=== PATIENT | male | born 1950 | race Caucasian/White ===

== ENCOUNTER 2017-04-18 08:42 | Observation (INO) | payer MEDICARE ==
[2017-04-18] MEDS ORDERED: Ondansetron INJ* 2 MG/ML VIAL IV ONE (09:17)
[2017-04-18] MEDS ORDERED: NS 0.9% 1000 ML* 3,000 ML IV ONE (09:17)
--- NOTE | 2017-04-18 09:17 | ED ---
Abdominal Pain/Male - History of Current Complaint Chief Complaint: EDDiabeticProb Stated Complaint: VOMITING/WEAK Time Seen by Provider: 04/18/17 09:06 Pain Intensity: 5 - Allergies/Home Medications Allergies/Adverse Reactions: Allergies Allergy/AdvReac Type Severity Reaction Status Date / Time SSRI Allergy Anxiety Uncoded 04/18/17 09:01 PMH/Surg Hx/FS Hx/Imm Hx Endocrine/Hematology History: Reports: Hx Diabetes - TYPE II- INSULIN OR ORAL MEDICATION FOR Denies: Hx Anemia Cardiovascular History: Reports: Hx Hypertension - ON MEDICATION FOR Respiratory History: Reports: Hx Sleep Apnea GI History: Reports: Other GI Disorders - HISTORY OF SLIGHTLY ENLARGED LIVER- PRIOR TO LOOSING WEIGHT Denies: Hx Jaundice Sensory History: Reports: Hx Cataracts - LEFT, Hx Contacts or Glasses - READING GLASSES Denies: Hx Hearing Aid Opthamlomology History: Reports: Hx Cataracts - LEFT, Hx Contacts or Glasses - READING GLASSES - Surgical History Surgery Procedure, Year, and Place: LEFT EYE RETINA REPAIR- [place]. 10 YEARS AGO-PLASTIC SURGERY-[place]. 20 YEARS AGO-PLASTIC SURGERY[place] Hx Anesthesia Reactions: No Infectious Disease History: No Infectious Disease History: Denies: Traveled Outside the [place] in Last 30 Days - Family History Known Family History: Negative: Cardiac Disease, Hypertension, Diabetes - Social History Alcohol Use: Daily Alcohol Amount: "quite a bit" vodka Substance Use Type: Reports: Marijuana Substance Use Comment - Amount & Last Used: ocassionally Smoking Status (MU): Never Smoked Tobacco Physical Exam Vital Signs On Initial Exam: Initial Vitals Temp Pulse Resp BP Pulse Ox 98.0 F 109 20 165/79 97 04/18/17 08:44 04/18/17 08:44 04/18/17 08:44 04/18/17 08:44 04/18/17 08:44 - [place] Coma Scale Coma Scale Total: 15 Diagnostics - Vital Signs Vital Signs Temp Pulse Resp BP Pulse Ox 04/18/17 09:01 104 97 04/18/17 08:58 185/70 04/18/17 08:54 98.6 F 105 18 185/70 98 04/18/17 08:44 98.0 F 109 20 165/79 97 - Laboratory Lab Statement: Any lab studies that have been ordered have been reviewed, and results considered in the medical decision making process.
[2017-04-18 09:46] LABS: Hematocrit 49 % (42-52); Hemoglobin 15.8 g/dl (14.0-18.0); Mean Corpuscular HGB Conc 32 g/dl (31-36); Mean Corpuscular Hemoglobin 32 pg (27-31); Mean Corpuscular Volume 100 fL (80-94); Mean Platelet Volume 9 um3 (7.4-10.4); Red Blood Count 4.89 10^6/ul (4.0-5.4); Red Cell Distribution Width 13 % (10.5-15); White Blood Count 19.1 10^3/ul (3.5-10.8)
[2017-04-18] MEDS ORDERED: Ibuprofen TAB* 400 MG PO ONE (09:52)
--- NOTE | 2017-04-18 09:54 | ED ---
HPI Diabetic - HPI Summary HPI Summary: 67 male presents to ER with complaints of of vomiting that began last night around 8pm 04/17/17. Patient states he since has been vomiting every half hour, unable to keep anything down. Patient is a Type II diabetic in which he takes Lantus 50mg in the morning however he states he may have forgot to take it yesterday morning. States last time he did this he did go into DKA. Patient also is heavy alcohol user, drinking 2-3 glass of vodka a day. Last use was last night at 6pm. States he used to have and be treated for HTN and high cholesterol however due to changing his diet and lowering A1C fro 10.5 to 6.4 he no longer is taking any medications other than supplements and Lantus. Admits to feeling weak/lethargic since vomiting occurred. Denies altered mental status and any pain. Denies chest pain, difficulty breathing, dizziness, abdominal pain hematemesis, fever/chills and complaints. States he has a sore throat from vomiting. - History Of Current Complaint Chief Complaint: EDDiabeticProb Time Seen by Provider: 04/18/17 09:06 Hx Obtained From: Patient Onset/Duration: Sudden Onset, Lasting Hours, Still Present, Worse Since Timing: Constant Severity Initially: Moderate Severity Currently: Severe Character: Alert Aggravating: Alcohol, Non-compliant - missed lantus dose 04/17/17 Alleviating: Nothing Associated Signs & Symptoms: Polydipsia, Vomiting Related History: Controlled - when takes medication, DM II, Hx of DKA, Insulin Requiring - Risk Factors Cardiac Risk Factors: Hypertension - no longer medicated for, Elevated Lipids - no longer medicated for CVA Risk Factor: Alcohol Abuse Serious Bact. Infect. Risk Factors (Meningitis/Sepsis/UTI): Negative - Allergies/Home Medications Allergies/Adverse Reactions: Allergies Allergy/AdvReac Type Severity Reaction Status Date / Time SSRI Allergy Anxiety Uncoded 04/18/17 09:01 PMH/Surg Hx/FS Hx/Imm Hx Endocrine/Hematology History: Reports: Hx Diabetes - TYPE II- INSULIN OR ORAL MEDICATION FOR Denies: Hx Anemia Cardiovascular History: Reports: Hx Hypercholesterolemia - no longer taking medication for , Hx Hypertension - no longer taking medication for Respiratory History: Reports: Hx Sleep Apnea GI History: Reports: Other GI Disorders - HISTORY OF SLIGHTLY ENLARGED LIVER- PRIOR TO LOOSING WEIGHT Denies: Hx Jaundice Sensory History: Reports: Hx Cataracts - LEFT, Hx Contacts or Glasses - READING GLASSES Denies: Hx Hearing Aid Opthamlomology History: Reports: Hx Cataracts - LEFT, Hx Contacts or Glasses - READING GLASSES - Surgical History Surgery Procedure, Year, and Place: LEFT EYE RETINA REPAIR- [place]. 10 YEARS AGO-PLASTIC SURGERY-[place]. 20 YEARS AGO-[place] SURGERY[place] Hx Anesthesia Reactions: No - Immunization History Immunizations Up to Date: Yes Infectious Disease History: No Infectious Disease History: Denies: Traveled Outside the [place] in Last 30 Days - Family History Known Family History: Negative: Cardiac Disease, Hypertension, Diabetes - Social History Alcohol Use: Daily Alcohol Amount: "quite a bit" vodka 2-3 glasses Substance Use Type: Reports: Marijuana Substance Use Comment - Amount & Last Used: ocassionally Smoking Status (MU): Never Smoked Tobacco Review of Systems Constitutional: Negative Eyes: Negative ENT: Negative Cardiovascular: Negative Respiratory: Negative Positive: Vomiting, Nausea Musculoskeletal: Negative Skin: Negative Neurological: Negative All Other Systems Reviewed And Are Negative: Yes Physical Exam Triage Information Reviewed: Yes Vital Signs On Initial Exam: Initial Vitals Temp Pulse Resp BP Pulse Ox 98.0 F 109 20 165/79 97 04/18/17 08:44 04/18/17 08:44 04/18/17 08:44 04/18/17 08:44 04/18/17 08:44 tachycardia noted Vital Signs Reviewed: Yes Appearance: Positive: No Pain Distress, Well-Nourished, Ill-Appearing - lethargic, weak Skin: Positive: Warm, Skin Color Reflects Adequate Perfusion, Dry, Pale. Negative: Cold, Cyanosis @, Diaphoretic Head/Face: Positive: Normal Head/Face Inspection Eyes: Positive: Normal, Conjunctiva Clear ENT: Positive: Normal ENT inspection, Hearing grossly normal, Pharyngeal erythema, TMs normal Neck: Positive: Supple, Nontender, No Lymphadenopathy Respiratory/Lung Sounds: Positive: Clear to Auscultation, Breath Sounds Present. Negative: Rales, Rhonchi, Wheezes Cardiovascular: Positive: Normal, RRR, Pulses are Symmetrical in both Upper and Lower Extremities, Tachycardia. Negative: Murmur, Rub, Leg Edema Left, Leg Edema Right Abdomen Description: Positive: Nontender, No Organomegaly, Soft. Negative: Distended, Guarding, Peritoneal Signs, Pulsatile Mass Bowel Sounds: Positive: Present Musculoskeletal: Positive: Normal, Strength/ROM Intact Neurological: Positive: Normal, Sensory/Motor Intact, Alert, Oriented to Person Place, Time Psychiatric: Positive: Affect/Mood Appropriate AVPU Assessment: Alert - [place] Coma Scale Best Eye Response: 4 - Spontaneous Best Motor Response: 6 - Obeys Commands Best Verbal Response: 5 - Oriented Coma Scale Total: 15 Diagnostics - Vital Signs Vital Signs Temp Pulse Resp BP Pulse Ox 04/18/17 09:30 102 23 177/65 97 04/18/17 09:01 104 97 04/18/17 09:00 187/72 04/18/17 08:58 185/70 04/18/17 08:54 98.6 F 105 18 185/70 98 04/18/17 08:44 98.0 F 109 20 165/79 97 - Laboratory Lab Results: Lab Results 04/18/17 Range/Units 08:55 POC Glucose (mg/dL) > 444 H* (74-106) mg/dL Result Diagrams: 04/18/17 09:20 04/18/17 14:05 Lab Statement: Any lab studies that have been ordered have been reviewed, and results considered in the medical decision making process. Diabetic Course/Dx - Course Course Of Treatment: Lab work, UA and ABG obtained. Due to finger glustick upon arrival unable to detect, was started on 3 L fluid bolus STAT. ABG and lab work , anion gap, glucose, lactic, lipase etc were elevated and abnormal. appears to be suffering from DKA. Discussed with Dr Lentz. Started on insulin drip and continued fluids. Given zofran for nausea. Consulted with ICU Dr De Jesus at 10: 25am. Will admit. Assessment/Plan: ICU admission for DKA - Diagnoses Differential Dx: Diabetic Ketoacidosis, Hyperglycemia, Hyperosmolar State, Sepsis, Other Provider Diagnoses: DKA (diabetic ketoacidoses) - Physician Notifications Discussed Care Of Patient With: Dr De Jesus Time Discussed With Above Provider: 10:25 Instructed by Provider To: Admit As Inpatient - ICU Discharge - Discharge Plan Condition: Stable Disposition: ADMITTED TO [facility]
[2017-04-18 10:01] LABS: Albumin 4.1 g/dL (3.2-5.2); BUN/Creatinine Ratio 16.8 (8-20); C Reactive Protein 4.42 mg/L (< 5.00); Calcium 9.6 mg/dL (8.6-10.3); EGFR African American 53.2 (>60); EGFR Non-African American 41.4 (>60); Globulin 3.2 g/dL (2-4); Total Bilirubin 0.8 mg/dL (0.2-1.0); Total Protein 7.3 g/dL (6.4-8.9)
[2017-04-18 10:02] LABS: Urine Bilirubin Negative (Negative); Urine Glucose 3+(>=500 mg/dL) (Negative); Urine Nitrite Negative (Negative)
[2017-04-18 10:09] LABS: Potassium 5.3 mmol/L (3.5-5.0)
[2017-04-18 10:41] LABS: Add Diff/Slide Review? Slide Review Added; Comments Flag Yes
[2017-04-18] MEDS ORDERED: LORazepam INJ* 2 MG/ML 1 ML VIAL IV PUSH PRN (11:31)
[2017-04-18] MEDS ORDERED: Ondansetron INJ* 2 MG/ML VIAL IV PRN (11:32)
--- NOTE | 2017-04-18 11:37 | HP ---
H&P (Free Text) History and Physical: CRITICAL CARE MEDICINE DATE: 04/18/17 TIME: 1100 PRIMARY CARE PROVIDER: REFERRING PROVIDER: Jayshree. REASON/CHIEF COMPLAINT: dka HISTORY OF PRESENT ILLNESS: 67 yo M with h/o etoh abuse, iddm usually on lantus 50 units daily followed by Dr. Gonsalez who beleives he missed his dose yesterday. Had 3 glasses of vodka yesterday and had episodes of vomiting overnight that were unrelenting about every 30min. Did take his lantus this am and presented to ED. Found to be in dka with AG 37. IVF, insulin gtt and admit to icu REVIEW OF SYSTEMS: As per HPI. denies cp, f, c. PAST MEDICAL HISTORY: As per HPI. MEDICATIONS: Reviewed. lantus 50units daily, supplements. states he has "pills" if needing to stop etoh ALLERGIES: SSRI SOCIAL HISTORY: Reviewed. 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 +etoh daily FAMILY HISTORY: Noncontributory at present. PHYSICAL EXAM: Vital Signs: Reviewed. Neurologic: awake, communicating, nonfocal, mild encephalopathy. HEENT: anicteric, mm dry Cardiovascular: S1 S2 Respiratory: clear, tachypnic Abdomen: soft, nt Extremities: warm Access: piv LABS: Reviewed. IMAGING: Reviewed. MEDICATIONS: Reviewed. ASSESSMENT/PLAN: 67 M with dka, lopez sec to this, and etoh abuse He looks a bit better then his numbers, but needs volume and insulin gtt and time on dextrose as well. Check labs at 2p and look to add dextrose at that time. can have clears and advance as tolerating. Seeming non-adherence and etoh main triggers. Need watch for etoh withdrawal. prn ativan. f/u lytes and renal recovery from pre-renal. No clinical pancreatitis. no infection. wbc reactive. Etoh cessation Can have Dr. Gonsalez see him tomorrow. Supportive and preventative care as ordered. SUP: po VTE prophylaxis: Lovenox Disposition: ICU Code Status: Full Critical Care Time: 45min Alonzo De Jesus DO
[2017-04-18] MEDS: NS 0.9% 1000 ML* 1,000 ML IV SCH ×3 (11:49→13:51)
[2017-04-18] MEDS: Insulin GLARGINE(*) 1 UNITS UNIT SUBCUT SCH (11:56)
[2017-04-18] MEDS ORDERED: hydrALAZINE IV* 20 MG/ML VIAL IV SLOW PU PRN (12:17)
[2017-04-18] MEDS ORDERED: Pantoprazole IV* 40 MG IV ONE (12:25)
[2017-04-18] MEDS: Calcium Carbonate CHEW TAB* 500 MG (TUMS) PO PRN (12:39)
[2017-04-18] MEDS: Acetaminophen TAB* 325 MG PO PRN ×2 (13:08→20:48)
[2017-04-18] MEDS ORDERED: Enoxaparin(*) 40 MG/0.4 ML SYR SUBCUT SCH (14:00)
[2017-04-18 14:35] LABS: Calcium 7.9 mg/dL (8.6-10.3); EGFR African American 77.2 (>60); Potassium 4.2 mmol/L (3.5-5.0)
[2017-04-18] MEDS: D5W 1/2 NS 40 Meq KCL 1000 ML* 1,000 ML IV SCH ×2 (14:57→21:17)
[2017-04-18 18:37] LABS: BUN/Creatinine Ratio 18.9 (8-20); Calcium 8.4 mg/dL (8.6-10.3); EGFR African American 89.9 (>60); EGFR Non-African American 69.9 (>60); Potassium 4.5 mmol/L (3.5-5.0)
[2017-04-18] MEDS: Benzocaine/Menthol LOZ* 1 LOZENGE PO PRN (19:47)
[2017-04-19] MEDS: Acetaminophen TAB* 325 MG PO PRN ×2 (00:19→07:48)
[2017-04-19] MEDS: Calcium Carbonate CHEW TAB* 500 MG (TUMS) PO PRN (00:20)
[2017-04-19] MEDS: Benzocaine/Menthol LOZ* 1 LOZENGE PO PRN ×2 (00:20→07:49)
[2017-04-19 06:32] LABS: Hematocrit 43 % (42-52); Hemoglobin 14.2 g/dl (14.0-18.0); Mean Corpuscular HGB Conc 33 g/dl (31-36); Mean Corpuscular Hemoglobin 32 pg (27-31); Mean Corpuscular Volume 98 fL (80-94); Mean Platelet Volume 8 um3 (7.4-10.4); Red Blood Count 4.39 10^6/ul (4.0-5.4); Red Cell Distribution Width 13 % (10.5-15); White Blood Count 12.1 10^3/ul (3.5-10.8)
[2017-04-19 06:42] LABS: BUN/Creatinine Ratio 17.7 (8-20); Calcium 8.3 mg/dL (8.6-10.3); EGFR African American 126.2 (>60); EGFR Non-African American 98.1 (>60); Phosphorus 2.5 mg/dL (2.5-5.0); Potassium 4.1 mmol/L (3.5-5.0)
--- NOTE | 2017-04-19 07:30 | PN ---
Subjective - Subjective Reason for Note: Discharge Note History: Discharge Summary I have reviewed Arben Kearney's presentation with the patient and also with Dr. Gates's admitting history and physical. He was on a trip to [place] and has been using the same vial of insulin all along. It may have spoiled. He missed a dose of lantus, but no more. He is an alcoholic and has been drinking the usual amount of alcohol. Otherwise, he has had no intercurrent illnesses - no URI, UTI. He developed nausea and vomiting leading to his presentation. He has received optimal management overnight on the ICU and is now well hydrated and his glucose is back to a desirable range. He feels improved and ready to go home. Active Problems: Active Problems DKA, type 2 (Acute) E13.10 Heartburn (Acute) R12 Essential (primary) hypertension (Chronic) I10 Hyperlipidemia (Chronic) E78.5 Insulin long-term use (Chronic) Z79.4 Personal history of alcoholism (Chronic) F10.21 Type 2 diabetes mellitus (Chronic) Current Medications: Current Medications Acetaminophen (Tylenol Tab*) 650 mg PO Q4H PRN PRN Reason: FEVER/PAIN Last Admin: 04/19/17 00:19 Dose: 650 mg Calcium Carbonate (Tums*) 500 mg PO Q4H PRN PRN Reason: DYSPEPSIA Last Admin: 04/19/17 00:20 Dose: 500 mg Enoxaparin Sodium (Lovenox(*)) 40 mg SUBCUT Q24H DAINA Last Admin: 04/18/17 13:57 Dose: 40 mg Hydralazine HCl (Apresoline Iv*) 10 mg IV SLOW PU Q6H PRN PRN Reason: BLOOD PRESSURE Last Admin: 04/18/17 12:39 Dose: 10 mg Potassium Chloride/Dextrose (D5w 1/2 Ns 40 Meq Kcl 1000 Ml*) 1,000 mls @ 75 mls /hr IV PER RATE DAINA Last Admin: 04/18/17 21:17 Dose: 150 mls/hr Insulin Glargine (Lantus(*)) 50 units SUBCUT Q24H DAINA Last Admin: 04/18/17 11:56 Dose: 50 units Lorazepam (Ativan Inj*) 2 mg IV PUSH Q4H PRN PRN Reason: AGITATION Ondansetron HCl (Zofran Inj*) 4 mg IV Q6H PRN PRN Reason: NAUSEA Throat Lozenges (Chloraseptic Neil*) 1 neil PO Q4H PRN PRN Reason: SORE THROAT Last Admin: 04/19/17 00:20 Dose: 1 neil - Review of Systems Pulmonary: Positive: Cough Negative: Sputum, Hemoptysis, Respiratory Distress Cardiology: Negative: Chest Pain, Shortness of Breath, Palpitations, Swelling of Ankles Gastroenterology: Positive: Anorexia - he is hungry, Difficulty Swallowing - some soreness of throat from retching Negative: Nausea - this has stopped, Vomiting, Change in Bowel Habits Genital - Urinary: Negative: Dysuria Home Medications: Home Medications Medication Instructions Recorded Confirmed Type Aspirin [Aspirin Low Dose] 81 mg PO QAM 12/26/15 04/18/17 History Calcium 800 mg PO QAM 12/26/15 04/18/17 History Cholecalciferol [Vitamin D3] 1,000 unit PO DAILY 12/26/15 04/18/17 History [place] 3 Fatty Acids-[place] 6 FA 1 cap PO DAILY 12/26/15 04/18/17 History [Super [place]-3] Senior Multi Vitamin 1 tab PO DAILY 12/26/15 04/18/17 History Ultimate Probiotivs 1 tab PO DAILY 12/26/15 04/18/17 History Insulin GLARGINE(*) [Lantus(*)] 50 units SUBCUT Q24H unit 04/19/17 Rx Allergies: Allergies Allergy/AdvReac Type Severity Reaction Status Date / Time SSRI Allergy Anxiety Uncoded 04/18/17 09:01 Objective - Vital Signs Vital Signs: Vital Signs 04/18/17 04/18/17 04/18/17 11:00 11:14 11:30 Temperature 98.6 F 99.5 F Pulse Rate 102 100 102 Respiratory 23 18 18 Rate Blood Pressure 181/84 181/84 176/77 (mmHg) O2 Sat by Pulse 99 99 Oximetry 04/18/17 04/18/17 04/18/17 11:35 11:47 11:48 Temperature Pulse Rate 102 98 Respiratory 21 20 Rate Blood Pressure 183/92 (mmHg) O2 Sat by Pulse 99 98 Oximetry 04/18/17 04/18/17 04/18/17 12:00 12:15 12:26 Temperature 98.6 F Pulse Rate 98 97 Respiratory 22 20 22 Rate Blood Pressure 186/69 193/67 (mmHg) O2 Sat by Pulse 98 97 Oximetry 04/18/17 04/18/17 04/18/17 12:30 12:45 13:00 Temperature Pulse Rate 97 96 97 Respiratory 22 21 23 Rate Blood Pressure 189/74 177/64 154/57 (mmHg) O2 Sat by Pulse 98 98 99 Oximetry 04/18/17 04/18/17 04/18/17 13:30 14:00 15:00 Temperature Pulse Rate 95 93 88 Respiratory 16 15 16 Rate Blood Pressure 150/52 159/56 141/54 (mmHg) O2 Sat by Pulse 99 99 99 Oximetry 04/18/17 04/18/17 04/18/17 16:00 17:00 18:00 Temperature 98.6 F Pulse Rate 88 88 92 Respiratory 19 23 26 Rate Blood Pressure 143/58 134/62 (mmHg) O2 Sat by Pulse 98 96 98 Oximetry 04/18/17 04/18/17 04/18/17 19:00 19:19 20:00 Temperature 100.1 F Pulse Rate Respiratory 18 21 18 Rate Blood Pressure 143/56 148/64 (mmHg) O2 Sat by Pulse 95 98 99 Oximetry 04/18/17 04/18/17 04/18/17 21:00 22:00 23:00 Temperature Pulse Rate 80 Respiratory 17 15 16 Rate Blood Pressure 137/58 130/63 145/68 (mmHg) O2 Sat by Pulse 98 94 96 Oximetry 04/18/17 04/18/17 04/18/17 23:22 23:27 23:43 Temperature 100.1 F Pulse Rate Respiratory 23 18 Rate Blood Pressure (mmHg) O2 Sat by Pulse 96 Oximetry 04/19/17 04/19/17 04/19/17 00:00 00:01 01:00 Temperature Pulse Rate Respiratory 23 22 20 Rate Blood Pressure 143/63 139/62 (mmHg) O2 Sat by Pulse 96 96 94 Oximetry 04/19/17 04/19/17 04/19/17 02:00 03:00 04:00 Temperature 100.4 F Pulse Rate 80 81 80 Respiratory 18 11 25 Rate Blood Pressure 144/63 156/67 151/64 (mmHg) O2 Sat by Pulse 95 97 98 Oximetry 04/19/17 04/19/17 04/19/17 05:00 06:00 07:00 Temperature Pulse Rate Respiratory 24 22 19 Rate Blood Pressure 153/68 158/68 152/68 (mmHg) O2 Sat by Pulse 98 100 97 Oximetry - Intake and Output Intake and Output: Intake & Output 04/16/17 04/17/17 04/18/17 04/19/17 11:59 11:59 11:59 11:59 Intake Total 5567.7 Output Total 300 1999 Balance -300 3567.7 Weight 226 lb 3.108 oz Intake: IV Fluids 4717 D5W 1/4 NS 40 meq KCL 2717 NS 1999 Medicated IV 70.7 INSULIN 70.7 Oral 780 Output: Urine 300 1999 Other: Estimated Void Medium ADLs: Meal Record Start: 04/18/17 11: 05 Freq: 09,13,18 Status: Active Created 04/18/17 11:05 System (Rec: 04/18/17 11:05 System [id number]) Document 04/18/17 13:30 [id number] (Rec: 04/18/17 13:42 [id number] ICU-M21) Document 04/18/17 18:00 [id number] (Rec: 04/18/17 18:07 [id number] ICU-C25) Intake and Output Start: 04/18/17 08: 47 Freq: Status: Active Created 04/18/17 08:47 System (Rec: 04/18/17 08:47 System ED-C24) Document 04/18/17 11:06 [id number] (Rec: 04/18/17 11:06 [id number] EDL-C04) Intake and Output Start: 04/18/17 11: 05 Freq: 06,14,22 Status: Active Created 04/18/17 11:05 System (Rec: 04/18/17 11:05 System ICU-C15) Document 04/18/17 14:00 [id number] (Rec: 04/18/17 15:10 [id number] ICU-C15) Document 04/18/17 17:44 [id number] (Rec: 04/18/17 17:44 [id number] ICU-C25) Document 04/18/17 21:55 [id number] (Rec: 04/18/17 21:55 [id number] ICU-C16) Document 04/18/17 23:27 [id number] (Rec: 04/18/17 23:27 [id number] ICU-C14) Document 04/19/17 04:12 [id number] (Rec: 04/19/17 04:13 [id number] ICU-C14) Document 04/19/17 06:30 [id number] (Rec: 04/19/17 06:30 [id number] ICU-C16) - Physical Exam General Physical Exam Comment: Alert, oriented and fully conversational. Well hydrated, warm and normally perfused. Hemodynamically stable General: No Cyanosis, No Anemia, No Jaundice, No Clubbing Skin: Normal: Rash Lungs and Chest: Yes: Chest Expansion Full, Chest Expansion Symetrica, Percussion Note Resonant, Vessicular Breath Sounds. No: Crackles, Wheezes Heart Rate and Rhythm: Regular JVP: Not Elevated Additional Cardiovascular: Yes: Normal Heart Sounds. No: Heart Murmur, Pedal Edema Abdominal Exam: Yes: Soft, Bowel Sounds Present. No: Distention, Abdominal Mass , Hepatomegaly, Abdominal Tenderness - Extremities Cranial Nerves II-XII Intact: Yes Limbs: Normal Power, Normal Tone - Neuro Orientation: A/O x3 Psychiatric: Normal Speech: Normal Results - Results Lab Results: Laboratory Results - last 24 hr 04/18/17 04/18/17 04/18/17 14:05 14:09 15:12 WBC RBC Hgb Hct MCV MCH MCHC RDW Plt Count MPV Neut % (Auto) Lymph % (Auto) [place] % (Auto) Eos % (Auto) Baso % (Auto) Absolute Neuts (auto) Absolute Lymphs (auto) Absolute Monos (auto) Absolute Eos (auto) Absolute Basos (auto) Absolute Nucleated RBC Nucleated RBC % Sodium 136 Potassium 4.2 Chloride 102 Carbon Dioxide 18 L Anion Gap 16 H BUN 23 Creatinine 1.21 H Est GFR ( Amer) 77.2 Est GFR (Non-Af Amer) 60.0 BUN/Creatinine Ratio 19.0 Glucose 255 H POC Glucose (mg/dL) 265 H 245 H Calcium 7.9 L Phosphorus Magnesium 04/18/17 04/18/17 04/18/17 16:14 17:24 18:04 WBC RBC Hgb Hct MCV MCH MCHC RDW Plt Count MPV Neut % (Auto) Lymph % (Auto) [place] % (Auto) Eos % (Auto) Baso % (Auto) Absolute Neuts (auto) Absolute Lymphs (auto) Absolute Monos (auto) Absolute Eos (auto) Absolute Basos (auto) Absolute Nucleated RBC Nucleated RBC % Sodium 138 Potassium 4.5 Chloride 105 Carbon Dioxide 26 Anion Gap 7 BUN 20 Creatinine 1.06 Est GFR ( Amer) 89.9 Est GFR (Non-Af Amer) 69.9 BUN/Creatinine Ratio 18.9 Glucose 224 H POC Glucose (mg/dL) 240 H 221 H Calcium 8.4 L Phosphorus Magnesium 04/18/17 04/18/17 04/18/17 18:13 19:37 22:02 WBC RBC Hgb Hct MCV MCH MCHC RDW Plt Count MPV Neut % (Auto) Lymph % (Auto) [place] % (Auto) Eos % (Auto) Baso % (Auto) Absolute Neuts (auto) Absolute Lymphs (auto) Absolute Monos (auto) Absolute Eos (auto) Absolute Basos (auto) Absolute Nucleated RBC Nucleated RBC % Sodium Potassium Chloride Carbon Dioxide Anion Gap BUN Creatinine Est GFR ( Amer) Est GFR (Non-Af Amer) BUN/Creatinine Ratio Glucose POC Glucose (mg/dL) 251 H 226 H 180 H Calcium Phosphorus Magnesium 04/19/17 04/19/17 04/19/17 00:23 02:18 04:36 WBC RBC Hgb Hct MCV MCH MCHC RDW Plt Count MPV Neut % (Auto) Lymph % (Auto) [place] % (Auto) Eos % (Auto) Baso % (Auto) Absolute Neuts (auto) Absolute Lymphs (auto) Absolute Monos (auto) Absolute Eos (auto) Absolute Basos (auto) Absolute Nucleated RBC Nucleated RBC % Sodium Potassium Chloride Carbon Dioxide Anion Gap BUN Creatinine Est GFR ( Amer) Est GFR (Non-Af Amer) BUN/Creatinine Ratio Glucose POC Glucose (mg/dL) 141 H 151 H 128 H Calcium Phosphorus Magnesium 04/19/17 04/19/17 06:00 06:00 WBC 12.1 H RBC 4.39 Hgb 14.2 Hct 43 MCV 98 H MCH 32 H MCHC 33 RDW 13 Plt Count 158 MPV 8 Neut % (Auto) 85.0 H Lymph % (Auto) 7.6 L [place] % (Auto) 7.1 Eos % (Auto) 0.1 Baso % (Auto) 0.2 Absolute Neuts (auto) 10.3 H Absolute Lymphs (auto) 0.9 L Absolute Monos (auto) 0.9 H Absolute Eos (auto) 0 Absolute Basos (auto) 0 Absolute Nucleated RBC 0 Nucleated RBC % 0 Sodium 139 Potassium 4.1 Chloride 108 Carbon Dioxide 25 Anion Gap 6 BUN 14 Creatinine 0.79 Est GFR ( Amer) 126.2 Est GFR (Non-Af Amer) 98.1 BUN/Creatinine Ratio 17.7 Glucose 128 H POC Glucose (mg/dL) Calcium 8.3 L Phosphorus 2.5 Magnesium 2.0 Assessment - Problem List Assessment: Patient Problems DKA, type 2 (Acute) Heartburn (Acute) Essential (primary) hypertension (Chronic) Hyperlipidemia (Chronic) Insulin long-term use (Chronic) Personal history of alcoholism (Chronic) Type 2 diabetes mellitus (Chronic) Plan: DKA, type 2 (Acute) He has recovered both symptomatically and also metabolically as judged by his labs this morning. He no longer is acidotic and has completely normal chemistry. I think he stable and ready for discharge Heartburn (Acute) This is likely from recurrent vomiting Essential (primary) hypertension (Chronic) He is chronically non-compliant and has contracted with me to work on his risk factors again Hyperlipidemia (Chronic) He has not been taking any medication for this Insulin long-term use (Chronic) His Lantus insulin was spoiled. He will use a new vial that has been stored in his refrigerator. I will work with him as an outpatient on improved glycemic control Personal history of alcoholism (Chronic) This is a major cause of his non- compliance. He denies depression at present and he is in a relationship with a partner who does not drink alcohol. He has lorazepam at home and has planned to stop alcohol. He states he doesn't go into acute withdrawal when he doesn't drink Type 2 diabetes mellitus (Chronic) He has amazingly few complications of diabetes given his poor control. I will work with him as an outpatient to improve his glycemic control. I had a discussion with him about his self-neglect. It is largely a result of his alcoholism. However, this is a chronic and persistent problem. He doesn't make appointments to my office. He always agrees to therapeutic plans and can carry them out for a few weeks, but then he falls off. He understands that this is a halfway health hazard. He is resolved to work with me to get his comorbidities well managed. He needs to eat breakfast, if he keeps this down he can go home.
[2017-04-19] MEDS: Insulin GLARGINE(*) 1 UNITS UNIT SUBCUT SCH (09:08)
[2017-04-19 09:15] VITALS: BP 162/71
== END 2017-04-19 09:48 | disposition home or self-care (01) ==
LOC: ED 08:42 → INTOOBSV 10:34 → ICU 10:34
PROVIDERS: ADMIT Internal Medicine Critical Care Medicine; ATTEND Internal Medicine Critical Care Medicine
DX: E13.10 Other specified diabetes mellitus with ketoacidosis without coma (principal); Z79.4 Long term (current) use of insulin; I10 Essential (primary) hypertension; E78.00 Pure hypercholesterolemia, unspecified; F10.20 Alcohol dependence, uncomplicated
CPT/HCPCS: 36415; 80048; 80053; 81003; 83036; 83605; 83690; 83735; 84100; 85025; 86140; 87641; 94660; 96361; 96372; 96374; 96375; 99285; A9270-GY; G0378; J0360; J1650; J2405

== ENCOUNTER 2018-12-29 09:15 | Inpatient (IN) | payer MEDICARE ==
--- NOTE | 2018-12-29 09:34 | ED ---
HPI Diabetic - HPI Summary HPI Summary: This pt is a 68 y/o male [facility]o nausea and vomiting since 22: 30 last night. Pt reports vomiting has been more frequent in the last 3 hours. Denies abd pain, diarrhea, constipation, swelling in LE. He is a type 2 DM and the last time he had these symptoms he was in DKA. Pt has been compliant with medications but he did not take insulin this morning. He reports getting injections in bilateral eyes, steroids in left eye and fluids in right eye. Pt notes drinking alcohol on a daily basis and did drink yesterday. - History Of Current Complaint Chief Complaint: EDNauseaVomitDiarrh Time Seen by Provider: 12/29/18 09:17 Hx Obtained From: Patient Onset/Duration: Lasting Hours, Still Present Timing: Hours Severity Currently: Moderate Aggravating: Nothing Alleviating: Nothing Associated Signs & Symptoms: Nausea, Vomiting Related History: Compliant, DM II, Hx of DKA - Allergies/Home Medications Allergies/Adverse Reactions: Allergies Allergy/AdvReac Type Severity Reaction Status Date / Time SSRI Allergy Anxiety Uncoded 12/29/18 09:50 Home Medications: Home Medications Amlodipine 10 mg PO DAILY 12/29/18 [History Confirmed 12/29/18] Invokana (NF) 100 mg PO DAILY 12/29/18 [History Confirmed 12/29/18] PMH/Surg Hx/FS Hx/Imm Hx Endocrine/Hematology History: Reports: Hx Diabetes - TYPE II- INSULIN OR ORAL MEDICATION FOR Denies: Hx Anticoagulant Therapy, Hx Blood Disorders, Hx Blood Transfusions, Hx Bone Marrow Disease, Hx Systemic Lupus Erythematosus, Hx Sickle Cell Disease , Hx Thyroid Disease, Hx Anemia, Hx Unexplained Bleeding, Other Endocrine/ Hematological Disorders Cardiovascular History: Reports: Hx Hypercholesterolemia - no longer taking medication for , Hx Hypertension - no longer taking medication for Denies: Hx Aneurysm, Hx Angina, Hx Angioplasty, Hx Auto Implanted Cardiovert Defib, Hx Cardiac Arrest, Hx Cardiomegaly, Hx Congenital Heart Disease, Hx Congestive Heart Failure, Hx Coronary Artery Disease, Hx Deep Vein Thrombosis, Hx Embolism, Hx Hypotension, Hx Pacemaker/ICD, Hx Peripheral Vascular Disease, Hx Rheumatic Fever, Hx Syncope, Hx Valvular Heart Disease, Other Cardiovascular Problems/Disorders Respiratory History: Reports: Hx Sleep Apnea GI History: Reports: Hx Gastroesophageal Reflux Disease, Other GI Disorders - HISTORY OF SLIGHTLY ENLARGED LIVER-PRIOR TO LOOSING WEIGHT Denies: Hx Cirrhosis, Hx Crohn's Disease, Hx Diverticulosis, Hx Gall Bladder Disease, Hx Gastrointestinal Bleed, Hx Hiatal Hernia, Hx Irritable Bowel, Hx Jaundice, Hx Obstructive Bowel, Hx Ileostomy, Hx Pyloric Stenosis, Hx Ulcer Sensory History: Reports: Hx Cataracts - LEFT, Hx Contacts or Glasses - READING GLASSES Denies: Hx Eye Injury, Hx Eye Prosthesis, Hx Glaucoma, Hx Legally Blind, Hx Macular Degeneration, Hx Vision Problem, Hx Deafness, Hx Hearing Aid, Hx Hearing Problem, Other Sensory Impairments Opthamlomology History: Reports: Hx Cataracts - LEFT, Hx Contacts or Glasses - READING GLASSES Denies: Hx Eye Injury, Hx Eye Prosthesis, Hx Glaucoma, Hx Legally Blind, Hx Macular Degeneration, Hx Vision Problem, Other Sensory Impairments - Surgical History Surgery Procedure, Year, and Place: LEFT EYE RETINA REPAIR- [place]. 10 YEARS AGO-PLASTIC SURGERY[facility]. 20 YEARS AGO-[facility] Hx Anesthesia Reactions: No Infectious Disease History: No Infectious Disease History: Denies: Hx Hepatitis, Traveled Outside the [place] in Last 30 Days - Family History Known Family History: Negative: Cardiac Disease, Hypertension, Diabetes - Social History Alcohol Use: Daily Alcohol Amount: "quite a bit" vodka 2-3 glasses Substance Use Type: Reports: Marijuana Substance Use Comment - Amount & Last Used: ocassionally Smoking Status (MU): Never Smoked Tobacco Review of Systems Negative: Fever, Chills Positive: Vomiting, Nausea. Negative: Abdominal Pain, Diarrhea, Other - NEG: constipation Negative: Edema - in LE All Other Systems Reviewed And Are Negative: Yes Physical Exam - Summary Physical Exam Summary: VITAL SIGNS: Reviewed. GENERAL: Patient is a well-developed and nourished male who is lying comfortable in the stretcher. Patient is not in any acute respiratory distress. HEAD AND FACE: No signs of trauma. No ecchymosis, hematomas or skull depressions. No sinus tenderness. EYES: PERRLA, EOMI x 2, No injected conjunctiva, no nystagmus. EARS: Hearing grossly intact. Ear canals and tympanic membranes are within normal limits. MOUTH: Oropharynx within normal limits. Dry oral mucosa. NECK: Supple, trachea is midline, no adenopathy, no JVD, no carotid bruit, no c- spine tenderness, neck with full ROM. CHEST: Symmetric, no tenderness at palpation LUNGS: Clear to auscultation bilaterally. No wheezing or crackles. CVS: Regular rate and rhythm, S1 and S2 present, no murmurs or gallops appreciated. ABDOMEN: Soft, non-tender. No signs of distention. No rebound no guarding, and no masses palpated. Bowel sounds are normal. EXTREMITIES: FROM in all major joints, no edema, no cyanosis or clubbing. NEURO: Alert and oriented x 3. No acute neurological deficits. Speech is normal and follows commands. SKIN: Dry and warm Triage Information Reviewed: Yes Vital Signs On Initial Exam: Initial Vitals Temp Pulse Resp BP Pulse Ox 98.1 F 102 20 139/76 97 12/29/18 09:19 12/29/18 09:19 12/29/18 09:19 12/29/18 09:19 12/29/18 09:19 Vital Signs Reviewed: Yes Diagnostics - Vital Signs Vital Signs Temp Pulse Resp BP Pulse Ox 12/29/18 09:19 98.1 F 102 20 139/76 97 - Laboratory Result Diagrams: 12/29/18 09:38 12/29/18 14:55 Lab Statement: Any lab studies that have been ordered have been reviewed, and results considered in the medical decision making process. - Radiology Abdomen XR Radiology Interpretation Completed By: Radiologist Summary of Radiographic Findings: IMPRESSION: No evidence for obstruction. Dr. Lentz has reviewed this report. - EKG 0945 Cardiac Rate: NL - at 94 bpm EKG Rhythm: Sinus Rhythm EKG Comparison: No Significant Change - Similar to prior EKG on 10/04/15. Summary of EKG Findings: No ST elevations. Diabetic Course/Dx - Course Assessment/Plan: This patient is a 68-year-old male who presents to the emergency department with a chief complaint of having nausea, vomiting and dehydration. Patient has past medical history significant for diabetes mellitus type 2, hypertension, dyslipidemia and chronic alcoholism. Test results with increased levels of white blood cell count of 16, hemoglobin 15.8, hematocrit 48, platelets 240. CMP shows chloride 93, carbon dioxide 13, anion gap is 37, glucose 294, lactic acid is 6.2, AST is 40. The patient is consistent with a DKA. ABG shows a pH of 7.23, PCO2 23, PO2 103, HCO3 12.4, saturation is 97.7. In the ED course the patient was given IV fluids 2 L bolus initially, patient was started on an insulin drip. At this time I discussed the case with Dr. Marion from the ICU who accepted the patient for admission. At this point the patient is hemodynamically stable, alert and oriented 3. - Diagnoses Differential Dx: Diabetic Ketoacidosis, Gestational Diabetes, Hyperglycemia, Hyperosmolar State Provider Diagnoses: DKA, type 2 - Physician Notifications Discussed Care Of Patient With: Tanya Marion - hydrogen cell tender Time Discussed With Above Provider: 10:51 Instructed by Provider To: Admit As Inpatient - Critical Care Time Critical Care Time: 75-104 min Discharge - Sign-Out/Discharge Documenting (check all that apply): Patient Departure - Admit to ICU Patient Received Moderate/Deep Sedation with Procedure: No - Discharge Plan Condition: Stable Disposition: ADMITTED TO [facility] - Billing Disposition and Condition Condition: STABLE Disposition: Admitted to [facility] - Attestation Statements Document Initiated by Mce: Yes Documenting Scribe: Tia Medrano Provider For Whom Mce is Documenting (Include Credential): Silverio Lentz MD Scribe Attestation: Tia Sams, scribed for Silverio Lentz MD on 12/29/18 at 1828. Scribe Documentation Reviewed: Yes Provider Attestation: The documentation as recorded by the Tia alford accurately reflects the service I personally performed and the decisions made by me, Silverio Lentz MD Status of Scribe Document: Viewed
[2018-12-29] MEDS ORDERED: Ondansetron INJ* 2 MG/ML VIAL IV ONE (09:44)
[2018-12-29] MEDS ORDERED: NS 0.9% 1000 ML** 1,000 ML IV ONE ×3 (09:44→21:02)
[2018-12-29 09:52] LABS: ABS Basophils 0.1 10^3/ul (0-0.2); ABS Eosinophils 0 10^3/ul (0-0.6); ABS Lymphocytes 2.3 10^3/ul (1.0-4.8); ABS Neutrophils 12.5 10^3/ul (1.5-7.7); ABS Nucleated RBC 0 10^3/ul; Eosinophil % 0.2 %; Hematocrit 48 % (36-46); Hemoglobin 15.8 g/dL (14.0-18.0); Lymphocyte % 14.6 %; Mean Corpuscular HGB Conc 33 g/dL (31-36); Mean Corpuscular Hemoglobin 33 pg (27-31); Mean Corpuscular Volume 101 fL (80-94); Mean Platelet Volume 7.9 fL (7.4-10.4); Nucleated Red Blood Cells % 0.1; Platelet Count 240 10^3/uL (150-450); Red Blood Count 4.76 10^6 /uL (4.18-5.48); Red Cell Distribution Width 14 % (10.5-15)
[2018-12-29 10:10] LABS: Albumin 4.4 g/dL (3.2-5.2); Albumin/Globulin Ratio 1.5 (1-3); BUN/Creatinine Ratio 20.9 (8-20); C Reactive Protein 3.56 mg/L (<8.01); Calcium 10.2 mg/dL (8.6-10.3); EGFR African American 80.8 (>60); EGFR Non-African American 66.8 (>60); Globulin 2.9 g/dL (2-4); Potassium 4.7 mmol/L (3.5-5.0); Total Bilirubin 0.6 mg/dL (0.2-1.0); Total Protein 7.3 g/dL (6.4-8.9)
[2018-12-29] MEDS ORDERED: Insulin IVPB 100 units/100 ml 100 UNITS/100 ML UNIT IVPB ONE (11:00)
--- NOTE | 2018-12-29 11:22 | HP ---
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, Other - abominoplasty - Past Family History Family History: DM - Past Social History Smoke: No Alcohol: Heavy - 2-3 glasses of vodka a night Drugs: Marijuana Review of Systems - Review of Systems Constitutional: Positive: Malaise Eyes: Negative: Pain, Vision Change, Conjunctivae Inflammation, Eyelid Inflammation, Redness, Other ENT: Negative: Ear Pain, Ear Discharge, Nose Pain, Nose Discharge, Nose Congestion, Mouth Pain, Mouth Swelling, Throat Pain, Throat Swelling, Other Respiratory: Negative: Cough, Dry, Shortness of Breath, Hemoptysis, SOB with Excertion, Pleuritic Pain, Sputum, Wheezing Cardiovascular: Negative: Chest Pain, Palpitations, Orthopnea, Paroxysmal Noc. Dyspnea, Edema, Light Headedness, Other Gastrointestinal: Positive: Nausea, Vomiting Genitourinary: Negative: Dysuria, Frequency, Incontinence, Hematuria, Retention , Other Musculoskeletal: Negative: Neck Pain, Shoulder Pain, Arm Pain, Back Pain, Hand Pain, Leg Pain, Foot Pain, Other - Medications/Allergies Allergies/Adverse Reactions: Allergies Allergy/AdvReac Type Severity Reaction Status Date / Time SSRI Allergy Anxiety Uncoded 12/29/18 09:50 Medications: Current Medications Insulin Human Regular (Insulin Regular Iv Drip 1 Unit/Ml) 100 units in 100 mls @ 9.707 mls/hr IVPB ONCE ONE; Protocol Stop: 12/29/18 21:18 Exam - Exam Vital Signs: Vital Signs (72 hours) 12/29/18 09:19 Temperature 98.1 F Pulse Rate 102 Respiratory 20 Rate Blood Pressure 139/76 (mmHg) O2 Sat by Pulse 97 Oximetry General: Alert, Oriented x3 HEENT: Atraumatic, PERRLA, EOMI Lungs: Clear to auscultation, Normal air movement Cardiovascular: Regular rate, Normal S1, Normal S2 Abdomen: Soft, No tenderness Extremities: No clubbing, No cyanosis, No edema Neurological: Normal speech, Normal tone Psych/Mental Status: Mental status NL, Mood NL Assessment/Plan - Assessment/Plan Assessment: 68 yo M with Diabetes mellitus type 2, controlled on oral hypoglycemics presents with nausea and vomiting similar to prior episodes of DKA. On evaluation in ED found to be in DKA. Bolused IVF and started on insulin gtt. Plan: Cardiovascular: (1) Sinus tachycardia secondary to DKA; (2) Chronic HTN; (3) Hyperlipidemia -- HR 102, follow trend -- SBP 139/76 -- Telemetry Home meds: "a BP med" Pulmonary: No acute issues -- RR 20 -- sats 97% on RA -- CXR: pending -- ABG: pH 7.23; pCO2 23; pO2 103; HCO3 12.4; BE -16.0; %O2 Sat 97.7. Home meds: None Gastrointestinal: (1) Minimally elevated AST; (2) Chronic GERD -- LFTs Tbili 0.6 ALK 48 AST 40, follow trend ALT 39 -- Pancreatic enzymes within normal limits -- diet: CLD -- bowel regimen: None -- ulcer prophylaxis: Not indicated at this time Home meds: None Endocrine: (1) DKA; (2) Diabetes mellitus type 2 -- monitor BGs -- Insulin per DKA protocol Home meds: oral hypoglycemic Renal: No acute issues -- I/O not recorded yet -- Cr 1.10 -- Lytes Na 143 K 4.7 Ca 10.2 -- IVF: NS @ 100 ml/hr Home meds: None Infectious disease: (1) Leukocytosis; (2) Possible sepsis -- Tmax 98.1 -- WBC 16.0 -- Micro 4/1 UA ordered blood ordered -- ABX None Home meds: None Neurologic: (1) Hx of alcoholism -- [facility] protocol Home meds: None Hematological: No acute issues -- Hgb 15.8 -- Plt 240 -- DVT prophylaxis: SQ Lovenox Home meds: None Metabolic: (1) Metabolic, lactic acidosis secondary to DKA -- Lactic acid 6.2, follow trend -- HCO3 13 -- AG 37 Home meds: None Deep vein thrombosis prophylaxis: SQ Lovenox Dietary: Not indicated at this time Condition: critical Prognosis: good Code status: full Disposition: admit ICU care Family updated at bedside regarding interval events and plan of care Cumulative time spent in the care of this patient (excluding any procedure time) : at least 50 minutes. Patient care included clinical interview (with patient and/or family), bedside exam of the patient, review of labs, x-rays, and other ancillary data, coordination of (respiratory, nursing care, review of patient's records, discussion regarding patients management with involved consultants, primary physician, pharmacists, and other healthcare personnel (dietary, case management , physical/occupational therapy etc.)
[2018-12-29 11:36] LABS: Urine Appearance Clear; Urine Bilirubin Negative (Negative); Urine Blood Negative (Negative); Urine Color Yellow; Urine Glucose 3+(>=500 mg/dL) (Negative); Urine Ketones 2+ (Negative); Urine Nitrite Negative (Negative); Urine Protein Negative (Negative); Urine Specific Gravity 1.017 (1.010-1.030); Urine Urobilinogen Negative (Negative)
[2018-12-29] MEDS ORDERED: NS 0.9% 1000 ML** 1,000 ML IV SCH (12:00)
[2018-12-29] MEDS: D5W 1/2 NS 40 Meq KCL 1000 ML* 1,000 ML IV SCH ×2 (13:23→22:55)
[2018-12-29] MEDS ORDERED: Thiamine IV* 100 MG/ML 2 ML VIAL IM ONE (14:11)
[2018-12-29] MEDS ORDERED: Thiamine TAB* 100 MG TAB PO ONE (15:00)
[2018-12-29] MEDS ORDERED: LORazepam INJ* 2 MG/ML 1 ML VIAL IM SCH (15:00)
[2018-12-29] MEDS: Enoxaparin(*) 40 MG/0.4 ML SYR SUBCUT SCH (15:59)
[2018-12-29] MEDS: LORazepam INJ* 2 MG/ML 1 ML VIAL IV PUSH SCH ×2 (16:07→23:04)
[2018-12-29 16:19] LABS: BUN/Creatinine Ratio 18.2 (8-20); Calcium 9.1 mg/dL (8.6-10.3); EGFR African American 80.8 (>60); EGFR Non-African American 66.8 (>60); Magnesium 1.9 mg/dL (1.9-2.7); Potassium 4.5 mmol/L (3.5-5.0)
[2018-12-29] MEDS: Acetaminophen TAB* 325 MG PO PRN (19:01)
[2018-12-29] MEDS ORDERED: Benzocaine/Menthol LOZ* 1 LOZENGE PO PRN (19:23)
[2018-12-29 19:29] LABS: BUN/Creatinine Ratio 18.6 (8-20); Calcium 8.6 mg/dL (8.6-10.3); EGFR African American 88.1 (>60); EGFR Non-African American 72.8 (>60); Potassium 4.3 mmol/L (3.5-5.0)
[2018-12-29] MEDS ORDERED: Insulin IVPB 100 units/100 ml 100 UNITS/100 ML UNIT IVPB SCH (22:00)
[2018-12-30 01:41] LABS: BUN/Creatinine Ratio 19.8 (8-20); Calcium 8.5 mg/dL (8.6-10.3); EGFR African American 94.5 (>60); EGFR Non-African American 78.1 (>60); Potassium 3.8 mmol/L (3.5-5.0)
[2018-12-30] MEDS ORDERED: Dextrose 50% Syringe 50 ML* 25 GM/50 ML SYRINGE IV PUSH PRN ×3 (01:48→08:18)
[2018-12-30] MEDS ORDERED: Insulin GLARGINE(*) 1 UNITS UNIT SUBCUT SCH ×2 (02:00→06:00)
[2018-12-30 05:36] LABS: Hematocrit 40 % (36-46); Hemoglobin 13.4 g/dL (14.0-18.0); Mean Corpuscular HGB Conc 34 g/dL (31-36); Mean Corpuscular Hemoglobin 34 pg (27-31); Mean Corpuscular Volume 100 fL (80-94); Mean Platelet Volume 7.4 fL (7.4-10.4); Platelet Count 169 10^3/uL (150-450); Red Blood Count 3.98 10^6 /uL (4.18-5.48); Red Cell Distribution Width 13 % (10.5-15); White Blood Count 12.8 10^3/uL (3.5-10.8)
[2018-12-30 05:42] LABS: ABS Basophils 0.1 10^3/ul (0-0.2); ABS Eosinophils 0 10^3/ul (0-0.6); ABS Lymphocytes 1.6 10^3/ul (1.0-4.8); ABS Monocytes 1.6 10^3/ul (0-0.8); ABS Neutrophils 9.4 10^3/ul (1.5-7.7); ABS Nucleated RBC 0 10^3/ul; Eosinophil % 0.2 %; Lymphocyte % 12.7 %; Nucleated Red Blood Cells % 0.1
[2018-12-30 05:54] LABS: Albumin 3.4 g/dL (3.2-5.2); Albumin/Globulin Ratio 1.5 (1-3); Calcium 8.3 mg/dL (8.6-10.3); EGFR African American 101.8 (>60); EGFR Non-African American 84.2 (>60); Globulin 2.3 g/dL (2-4); Magnesium 1.8 mg/dL (1.9-2.7); Potassium 4.5 mmol/L (3.5-5.0); Total Bilirubin 0.7 mg/dL (0.2-1.0); Total Protein 5.7 g/dL (6.4-8.9)
[2018-12-30] MEDS: Insulin IVPB 100 units/100 ml 100 UNITS/100 ML UNIT IVPB SCH ×2 (06:00→11:07)
--- NOTE | 2018-12-30 06:14 | PN ---
Progress Note - Progress Note Date of Service: 12/30/18 Note: Glucose levels dropped rather quickly and gap closed. Insulin drip and fluids stopped. Patient given his usual Lantus dose. Repeat AM labs shows gap reopened. Will restart insulin drip with D5 1/2 NS and keep patient NPO. Repeat BMP ordered for noon.
[2018-12-30] MEDS ORDERED: D5W 1/2 NS 1000 ML BAG* 1,000 ML IV SCH (07:00)
[2018-12-30] MEDS: LORazepam INJ* 2 MG/ML 1 ML VIAL IV PUSH SCH (07:07)
[2018-12-30] MEDS ORDERED: Insulin LISPRO* 1 UNITS UNIT SUBCUT SCH (07:30)
[2018-12-30] MEDS: Acetaminophen TAB* 325 MG PO PRN (07:59)
--- NOTE | 2018-12-30 08:04 | PN ---
Subjective - Subjective Reason for Note: Progress Note History: Arben Kearney is a primary care patient at my office and I am his attending physician. He has longstanding T2D with marked insulin resistance. He uses a ketotic diet to maintain his weight and control his glucose. A1c on 12/29 7.4% He is an alcoholic and admits to drinking 4 double shots of vodka per day. 2 days ago (Saturday). He had an acute binge of vodka from 11 am to 6 pm. He started vomiting in the evening and all night long. He came to the ED. He has had no recent intercurrent illnesses. He denies any other triggers. * CVS - no chest pain, palpitations, dyspnea or edema * Resp - no cough/sputum/Dyspnea * GI - aside from 2 days ago - no abdominal pain. He usually has a poor appetite , no change in bowel habit * - no dysuria/frequency * [facility] ICU - no headache. He is currently having injection therapy for his proliferative diabetic retinopathy * Infections - he has had no recent contacts or travel - though he goes to [place] frequently. No rashes. He feels improved this morning without nausea or vomiting or abdo pain. Active Problems: Active Problems Acute alcoholic intoxication (Acute) F10.929 DKA, type 2 (Acute) E13.10 Diabetic peripheral neuropathy (Acute) E11.42 Essential (primary) hypertension (Chronic) I10 Fatty liver (Chronic) K76.0 Hyperlipidemia (Chronic) E78.5 Insulin long-term use (Chronic) Z79.4 Personal history of alcoholism (Chronic) F10.21 Type 2 diabetes mellitus (Chronic) Current Medications: Current Medications Acetaminophen (Tylenol Tab*) 650 mg PO Q4H PRN PRN Reason: PAIN Last Admin: 12/29/18 19:01 Dose: 650 mg Dextrose (D50w Syringe 50 Ml*) 12.5 gm IV PUSH .FOR FS < 60 - SS PRN PRN Reason: FS < 60 Enoxaparin Sodium (Lovenox(*)) 40 mg SUBCUT Q24H [facility] Last Admin: 12/29/18 15:59 Dose: 40 mg Folic Acid (Folvite Tab*) 1 mg PO DAILY [facility] Dextrose/Sodium Chloride (D5w 1/2 Ns 1000 Ml Bag*) 1,000 mls @ 150 mls/hr IV PER RATE [facility] Last Admin: 12/30/18 06:00 Dose: 150 mls/hr Insulin Human Regular (Insulin Regular Iv Drip 1 Unit/Ml) 100 units in 100 mls @ 6 mls/hr IVPB Q16H [facility] Last Admin: 12/30/18 06:00 Dose: 6 mls/hr Insulin Glargine (Lantus(*)) 40 units SUBCUT Q24HR@0600 [facility] Last Admin: 12/30/18 05:37 Dose: 40 units Lorazepam (Ativan Inj*) 0 - 6 mg IM .PER [facility] PROTOCOL DAINA; Protocol Lorazepam (Ativan Inj*) 1 mg IV PUSH Q12H DAINA; Taper Stop: 01/01/19 10:59 Last Admin: 12/30/18 07:07 Dose: Not Given Multivitamins/Minerals (Theragran/Minerals Tab*) 1 tab PO DAILY [facility] Thiamine HCl (Vitamin B-1 Tab*) 100 mg PO DAILY [facility] Throat Lozenges (Chloraseptic Neil*) 1 neil PO Q6H PRN PRN Reason: SORE THROAT Home Medications: Home Medications Medication Instructions Recorded Confirmed Type Aspirin [Aspirin Low Dose] 81 mg PO QAM 12/26/15 12/29/18 History Calcium 800 mg PO QAM 12/26/15 12/29/18 History Cholecalciferol (Vitamin D3) 1,000 unit PO DAILY 12/26/15 12/29/18 History [Vitamin D3] Fish Oil/E/Fatty Acid5/Zdbt239 1 cap PO DAILY 12/26/15 12/29/18 History [Super [place]-3 Softgel] Senior Multi Vitamin 1 tab PO DAILY 12/26/15 12/29/18 History Ultimate Probiotivs 1 tab PO DAILY 12/26/15 12/29/18 History Insulin GLARGINE(*) [Lantus(*)] 50 units SUBCUT Q24H unit 04/19/17 12/29/18 Rx Amlodipine 10 mg PO DAILY 12/29/18 12/29/18 History Invokana (NF) 100 mg PO DAILY 12/29/18 12/29/18 History Allergies: Allergies Allergy/AdvReac Type Severity Reaction Status Date / Time SSRI Allergy Anxiety Uncoded 12/29/18 09:50 Objective - Vital Signs Vital Signs: Vital Signs 12/29/18 12/29/18 12/29/18 09:19 09:44 09:45 Temperature 98.1 F Pulse Rate 102 93 93 Respiratory 20 Rate Blood Pressure 139/76 142/64 (mmHg) O2 Sat by Pulse 97 99 100 Oximetry 12/29/18 12/29/18 12/29/18 10:00 10:22 10:44 Temperature Pulse Rate 95 97 100 Respiratory Rate Blood Pressure 155/73 150/71 (mmHg) O2 Sat by Pulse 98 99 100 Oximetry 12/29/18 12/29/18 12/29/18 11:37 11:44 12:14 Temperature Pulse Rate 104 102 Respiratory Rate Blood Pressure 177/84 160/83 185/85 (mmHg) O2 Sat by Pulse 100 99 Oximetry 12/29/18 12/29/18 12/29/18 12:45 12:51 12:53 Temperature 100.1 F 99.5 F Pulse Rate 103 104 103 Respiratory 24 16 Rate Blood Pressure 186/91 160/83 186/91 (mmHg) O2 Sat by Pulse 97 99 98 Oximetry 12/29/18 12/29/18 12/29/18 13:00 13:15 13:30 Temperature Pulse Rate 100 100 Respiratory 28 26 23 Rate Blood Pressure 171/78 168/80 (mmHg) O2 Sat by Pulse 97 98 Oximetry 12/29/18 12/29/18 12/29/18 14:00 14:01 15:00 Temperature Pulse Rate 99 95 90 Respiratory 30 19 23 Rate Blood Pressure 151/74 153/70 (mmHg) O2 Sat by Pulse 98 98 99 Oximetry 12/29/18 12/29/18 12/29/18 15:01 15:08 15:16 Temperature 98.4 F Pulse Rate 90 Respiratory 25 24 Rate Blood Pressure (mmHg) O2 Sat by Pulse 99 Oximetry 12/29/18 12/29/18 12/29/18 15:30 16:00 16:07 Temperature 98.6 F Pulse Rate 91 92 Respiratory 24 28 26 Rate Blood Pressure 136/74 149/70 (mmHg) O2 Sat by Pulse 97 98 Oximetry 12/29/18 12/29/18 12/29/18 16:10 16:30 17:00 Temperature Pulse Rate 91 89 Respiratory 24 26 26 Rate Blood Pressure 136/66 146/69 (mmHg) O2 Sat by Pulse 97 98 Oximetry 12/29/18 12/29/18 12/29/18 18:00 19:00 19:09 Temperature Pulse Rate 88 90 89 Respiratory 22 18 23 Rate Blood Pressure 136/75 126/67 (mmHg) O2 Sat by Pulse 98 96 94 Oximetry 12/29/18 12/29/18 12/29/18 20:00 20:01 21:00 Temperature Pulse Rate 91 93 84 Respiratory 26 18 25 Rate Blood Pressure 138/64 134/68 (mmHg) O2 Sat by Pulse 97 96 94 Oximetry 12/29/18 12/29/18 12/29/18 22:00 22:02 22:30 Temperature 99.8 F Pulse Rate 82 81 Respiratory 25 30 Rate Blood Pressure 133/70 (mmHg) O2 Sat by Pulse 95 92 Oximetry 12/29/18 12/29/18 12/29/18 23:00 23:01 23:50 Temperature Pulse Rate 80 80 Respiratory 18 28 25 Rate Blood Pressure 128/68 (mmHg) O2 Sat by Pulse 88 86 Oximetry 12/30/18 12/30/18 12/30/18 00:00 01:00 02:00 Temperature 100.2 F Pulse Rate 81 78 74 Respiratory 22 21 19 Rate Blood Pressure 128/68 130/69 124/68 (mmHg) O2 Sat by Pulse 93 90 97 Oximetry 12/30/18 12/30/18 12/30/18 03:00 04:00 05:00 Temperature 101.2 F Pulse Rate 73 73 78 Respiratory 19 18 23 Rate Blood Pressure 131/72 137/77 128/66 (mmHg) O2 Sat by Pulse 95 95 96 Oximetry 12/30/18 12/30/18 12/30/18 06:00 07:00 07:01 Temperature Pulse Rate 76 77 77 Respiratory 23 22 23 Rate Blood Pressure 125/65 94/61 (mmHg) O2 Sat by Pulse 95 94 93 Oximetry 12/30/18 07:37 Temperature Pulse Rate Respiratory 24 Rate Blood Pressure (mmHg) O2 Sat by Pulse Oximetry - Intake and Output Intake and Output: Intake & Output 12/27/18 12/28/18 12/29/18 12/30/18 11:59 11:59 11:59 11:59 Intake Total 19994.8 Output Total 2499 Balance 1999 -185.2 Weight 214 lb 219 lb 2.232 oz Intake: IV Fluids 1999 2191 D5W 1/2 NS 40 meq KCL 1242 NS (0.9%) 950 Medicated IV 122.8 CC - Insulin 122.8 Output: Urine 2500 ADLs: Meal Record Start: 12/29/18 12: 35 Freq: 09,13,18 Status: Active Protocol: Created 12/29/18 12:35 System (Rec: 12/29/18 12:35 System [id number]) Document 12/29/18 13:00 [id number] (Rec: 12/29/18 15:04 [id number] [id number]) Document 12/29/18 18:00 [id number] (Rec: 12/29/18 18:47 [id number] [id number]) Intake and Output Start: 12/29/18 09: 21 Freq: 06,14,2200 Status: Complete Protocol: Created 12/29/18 09:21 System (Rec: 12/29/18 09:21 System [id number]) Document 12/29/18 23:06 [id number] (Rec: 12/29/18 23:06 [id number] [id number]) Intake and Output Start: 12/29/18 12: 35 Freq: 06,14,2200 Status: Active Protocol: Created 12/29/18 12:35 System (Rec: 12/29/18 12:35 System ICU-C07) Document 12/29/18 13:00 [id number] (Rec: 12/29/18 15:04 [id number] ICU-C07) Document 12/30/18 01:41 [id number] (Rec: 12/30/18 01:41 [id number] ICU-C07) Document 12/30/18 05:32 [id number] (Rec: 12/30/18 05:32 [id number] ICU-C07) Document 12/30/18 07:15 [id number] (Rec: 12/30/18 07:15 [id number] ICU-C07) - Physical Exam General Physical Exam Comment: Warm and well perfused, in no acute distress. No signs of acute alcohol withdrawal General: No Cyanosis, No Anemia, No Jaundice, No Clubbing Endocrine: Yes Central Obesity, No Acromegaly, No Vitiligo, No Flushing, No Acanthosis nigricans, No Violaceious striae, No Jeannie Syndrome Lungs and Chest: Yes: Chest Expansion Full, Chest Expansion Symetrica, Percussion Note Resonant, Vessicular Breath Sounds. No: Crackles, Wheezes Heart Rate and Rhythm: Regular Additional Cardiovascular: Yes: Normal Heart Sounds. No: Heart Murmur, Pedal Edema Abdominal Exam: Yes: Soft, Bowel Sounds Present. No: Distention, Abdominal Tenderness - Extremities Cranial Nerves II-XII Intact: Yes Limbs: Normal Power, Normal Tone - Neuro Orientation: A/O x3 Psychiatric: Normal Speech: Normal Results - Results Lab Results: Laboratory Results - last 24 hr 12/29/18 12/29/18 12/29/18 09:30 09:38 09:38 WBC 16.0 H RBC 4.76 Hgb 15.8 Hct 48 H MCV 101 H MCH 33 H MCHC 33 RDW 14 Plt Count 240 MPV 7.9 Neut % (Auto) 78.3 Lymph % (Auto) 14.6 [place] % (Auto) 6.5 Eos % (Auto) 0.2 Baso % (Auto) 0.4 Absolute Neuts (auto) 12.5 H Absolute Lymphs (auto) 2.3 Absolute Monos (auto) 1.0 H Absolute Eos (auto) 0 Absolute Basos (auto) 0.1 Absolute Nucleated RBC 0 Nucleated RBC % 0.1 ABG pH ABG pCO2 ABG pO2 ABG HCO3 ABG O2 Saturation ABG Base Excess Sodium 143 Potassium 4.7 Chloride 93 L Carbon Dioxide 13 L* Anion Gap 37 H BUN 23 Creatinine 1.10 Est GFR ( Amer) 80.8 Est GFR (Non-Af Amer) 66.8 BUN/Creatinine Ratio 20.9 H Glucose 294 H POC Glucose (mg/dL) Hemoglobin A1c Lactic Acid Calcium 10.2 Magnesium 2.0 Total Bilirubin 0.60 AST 40 H ALT 39 Alkaline Phosphatase 48 C-Reactive Protein 3.56 Total Protein 7.3 Albumin 4.4 Globulin 2.9 Albumin/Globulin Ratio 1.5 Amylase 40 Lipase 16 Urine Color Yellow Urine Appearance Clear Urine pH 5.0 Ur Specific [place] 1.017 Urine Protein Negative Urine Ketones 2+ A Urine Blood Negative Urine Nitrate Negative Urine Bilirubin Negative Urine Urobilinogen Negative Ur Leukocyte Esterase Negative Urine Glucose 3+(>=500 mg/dl) A 12/29/18 12/29/18 12/29/18 09:38 09:39 10:25 WBC RBC Hgb Hct MCV MCH MCHC RDW Plt Count MPV Neut % (Auto) Lymph % (Auto) [place] % (Auto) Eos % (Auto) Baso % (Auto) Absolute Neuts (auto) Absolute Lymphs (auto) Absolute Monos (auto) Absolute Eos (auto) Absolute Basos (auto) Absolute Nucleated RBC Nucleated RBC % ABG pH 7.23 L ABG pCO2 23 L ABG pO2 103 H ABG HCO3 12.4 L ABG O2 Saturation 97.7 ABG Base Excess -16.0 L Sodium Potassium Chloride Carbon Dioxide Anion Gap BUN Creatinine Est GFR ( Amer) Est GFR (Non-Af Amer) BUN/Creatinine Ratio Glucose POC Glucose (mg/dL) 269 H Hemoglobin A1c Lactic Acid 6.2 H* Calcium Magnesium Total Bilirubin AST ALT Alkaline Phosphatase C-Reactive Protein Total Protein Albumin Globulin Albumin/Globulin Ratio Amylase Lipase Urine Color Urine Appearance Urine pH Ur Specific [place] Urine Protein Urine Ketones Urine Blood Urine Nitrate Urine Bilirubin Urine Urobilinogen Ur Leukocyte Esterase Urine Glucose 12/29/18 12/29/18 12/29/18 11:37 12:35 13:09 WBC RBC Hgb Hct MCV MCH MCHC RDW Plt Count MPV Neut % (Auto) Lymph % (Auto) [place] % (Auto) Eos % (Auto) Baso % (Auto) Absolute Neuts (auto) Absolute Lymphs (auto) Absolute Monos (auto) Absolute Eos (auto) Absolute Basos (auto) Absolute Nucleated RBC Nucleated RBC % ABG pH ABG pCO2 ABG pO2 ABG HCO3 ABG O2 Saturation ABG Base Excess Sodium Potassium Chloride Carbon Dioxide Anion Gap BUN Creatinine Est GFR ( Amer) Est GFR (Non-Af Amer) BUN/Creatinine Ratio Glucose POC Glucose (mg/dL) 312 H 266 H 229 H Hemoglobin A1c Lactic Acid Calcium Magnesium Total Bilirubin AST ALT Alkaline Phosphatase C-Reactive Protein Total Protein Albumin Globulin Albumin/Globulin Ratio Amylase Lipase Urine Color Urine Appearance Urine pH Ur Specific [place] Urine Protein Urine Ketones Urine Blood Urine Nitrate Urine Bilirubin Urine Urobilinogen Ur Leukocyte Esterase Urine Glucose 12/29/18 12/29/18 12/29/18 14:33 14:55 14:55 WBC RBC Hgb Hct MCV MCH MCHC RDW Plt Count MPV Neut % (Auto) Lymph % (Auto) [place] % (Auto) Eos % (Auto) Baso % (Auto) Absolute Neuts (auto) Absolute Lymphs (auto) Absolute Monos (auto) Absolute Eos (auto) Absolute Basos (auto) Absolute Nucleated RBC Nucleated RBC % ABG pH ABG pCO2 ABG pO2 ABG HCO3 ABG O2 Saturation ABG Base Excess Sodium 141 Potassium 4.5 Chloride 101 Carbon Dioxide 14 L* Anion Gap 26 H BUN 20 Creatinine 1.10 Est GFR ( Amer) 80.8 Est GFR (Non-Af Amer) 66.8 BUN/Creatinine Ratio 18.2 Glucose 154 H POC Glucose (mg/dL) 178 H Hemoglobin A1c 7.4 H Lactic Acid Calcium 9.1 Magnesium 1.9 Total Bilirubin AST ALT Alkaline Phosphatase C-Reactive Protein Total Protein Albumin Globulin Albumin/Globulin Ratio Amylase Lipase Urine Color Urine Appearance Urine pH Ur Specific [place] Urine Protein Urine Ketones Urine Blood Urine Nitrate Urine Bilirubin Urine Urobilinogen Ur Leukocyte Esterase Urine Glucose 12/29/18 12/29/18 12/29/18 14:55 15:59 17:13 WBC RBC Hgb Hct MCV MCH MCHC RDW Plt Count MPV Neut % (Auto) Lymph % (Auto) [place] % (Auto) Eos % (Auto) Baso % (Auto) Absolute Neuts (auto) Absolute Lymphs (auto) Absolute Monos (auto) Absolute Eos (auto) Absolute Basos (auto) Absolute Nucleated RBC Nucleated RBC % ABG pH ABG pCO2 ABG pO2 ABG HCO3 ABG O2 Saturation ABG Base Excess Sodium Potassium Chloride Carbon Dioxide Anion Gap BUN Creatinine Est GFR ( Amer) Est GFR (Non-Af Amer) BUN/Creatinine Ratio Glucose POC Glucose (mg/dL) 164 H 185 H Hemoglobin A1c Lactic Acid 3.5 H* Calcium Magnesium Total Bilirubin AST ALT Alkaline Phosphatase C-Reactive Protein Total Protein Albumin Globulin Albumin/Globulin Ratio Amylase Lipase Urine Color Urine Appearance Urine pH Ur Specific [place] Urine Protein Urine Ketones Urine Blood Urine Nitrate Urine Bilirubin Urine Urobilinogen Ur Leukocyte Esterase Urine Glucose 12/29/18 12/29/18 12/29/18 18:11 18:55 19:02 WBC RBC Hgb Hct MCV MCH MCHC RDW Plt Count MPV Neut % (Auto) Lymph % (Auto) [place] % (Auto) Eos % (Auto) Baso % (Auto) Absolute Neuts (auto) Absolute Lymphs (auto) Absolute Monos (auto) Absolute Eos (auto) Absolute Basos (auto) Absolute Nucleated RBC Nucleated RBC % ABG pH ABG pCO2 ABG pO2 ABG HCO3 ABG O2 Saturation ABG Base Excess Sodium 137 Potassium 4.3 Chloride 104 Carbon Dioxide 22 Anion Gap 11 BUN 19 Creatinine 1.02 Est GFR ( Amer) 88.1 Est GFR (Non-Af Amer) 72.8 BUN/Creatinine Ratio 18.6 Glucose 194 H POC Glucose (mg/dL) 172 H 184 H Hemoglobin A1c Lactic Acid Calcium 8.6 Magnesium Total Bilirubin AST ALT Alkaline Phosphatase C-Reactive Protein Total Protein Albumin Globulin Albumin/Globulin Ratio Amylase Lipase Urine Color Urine Appearance Urine pH Ur Specific [place] Urine Protein Urine Ketones Urine Blood Urine Nitrate Urine Bilirubin Urine Urobilinogen Ur Leukocyte Esterase Urine Glucose 12/29/18 12/29/18 12/29/18 20:07 20:58 22:01 WBC RBC Hgb Hct MCV MCH MCHC RDW Plt Count MPV Neut % (Auto) Lymph % (Auto) [place] % (Auto) Eos % (Auto) Baso % (Auto) Absolute Neuts (auto) Absolute Lymphs (auto) Absolute Monos (auto) Absolute Eos (auto) Absolute Basos (auto) Absolute Nucleated RBC Nucleated RBC % ABG pH ABG pCO2 ABG pO2 ABG HCO3 ABG O2 Saturation ABG Base Excess Sodium Potassium Chloride Carbon Dioxide Anion Gap BUN Creatinine Est GFR ( Amer) Est GFR (Non-Af Amer) BUN/Creatinine Ratio Glucose POC Glucose (mg/dL) 283 H 290 H 271 H Hemoglobin A1c Lactic Acid Calcium Magnesium Total Bilirubin AST ALT Alkaline Phosphatase C-Reactive Protein Total Protein Albumin Globulin Albumin/Globulin Ratio Amylase Lipase Urine Color Urine Appearance Urine pH Ur Specific [place] Urine Protein Urine Ketones Urine Blood Urine Nitrate Urine Bilirubin Urine Urobilinogen Ur Leukocyte Esterase Urine Glucose 12/29/18 12/29/18 12/30/18 23:13 23:16 00:03 WBC RBC Hgb Hct MCV MCH MCHC RDW Plt Count MPV Neut % (Auto) Lymph % (Auto) [place] % (Auto) Eos % (Auto) Baso % (Auto) Absolute Neuts (auto) Absolute Lymphs (auto) Absolute Monos (auto) Absolute Eos (auto) Absolute Basos (auto) Absolute Nucleated RBC Nucleated RBC % ABG pH ABG pCO2 ABG pO2 ABG HCO3 ABG O2 Saturation ABG Base Excess Sodium Potassium Chloride Carbon Dioxide Anion Gap BUN Creatinine Est GFR ( Amer) Est GFR (Non-Af Amer) BUN/Creatinine Ratio Glucose POC Glucose (mg/dL) 162 H 171 H 131 H Hemoglobin A1c Lactic Acid Calcium Magnesium Total Bilirubin AST ALT Alkaline Phosphatase C-Reactive Protein Total Protein Albumin Globulin Albumin/Globulin Ratio Amylase Lipase Urine Color Urine Appearance Urine pH Ur Specific [place] Urine Protein Urine Ketones Urine Blood Urine Nitrate Urine Bilirubin Urine Urobilinogen Ur Leukocyte Esterase Urine Glucose 12/30/18 12/30/18 12/30/18 01:03 01:20 02:01 WBC RBC Hgb Hct MCV MCH MCHC RDW Plt Count MPV Neut % (Auto) Lymph % (Auto) [place] % (Auto) Eos % (Auto) Baso % (Auto) Absolute Neuts (auto) Absolute Lymphs (auto) Absolute Monos (auto) Absolute Eos (auto) Absolute Basos (auto) Absolute Nucleated RBC Nucleated RBC % ABG pH ABG pCO2 ABG pO2 ABG HCO3 ABG O2 Saturation ABG Base Excess Sodium 139 Potassium 3.8 Chloride 108 Carbon Dioxide 26 Anion Gap 5 BUN 19 Creatinine 0.96 Est GFR ( Amer) 94.5 Est GFR (Non-Af Amer) 78.1 BUN/Creatinine Ratio 19.8 Glucose 92 POC Glucose (mg/dL) 79 80 Hemoglobin A1c Lactic Acid Calcium 8.5 L Magnesium Total Bilirubin AST ALT Alkaline Phosphatase C-Reactive Protein Total Protein Albumin Globulin Albumin/Globulin Ratio Amylase Lipase Urine Color Urine Appearance Urine pH Ur Specific [place] Urine Protein Urine Ketones Urine Blood Urine Nitrate Urine Bilirubin Urine Urobilinogen Ur Leukocyte Esterase Urine Glucose 12/30/18 12/30/18 12/30/18 03:07 05:29 05:29 WBC 12.8 H RBC 3.98 L Hgb 13.4 L Hct 40 MCV 100 H MCH 34 H MCHC 34 RDW 13 Plt Count 169 MPV 7.4 Neut % (Auto) 74.0 Lymph % (Auto) 12.7 [place] % (Auto) 12.4 Eos % (Auto) 0.2 Baso % (Auto) 0.7 Absolute Neuts (auto) 9.4 H Absolute Lymphs (auto) 1.6 Absolute Monos (auto) 1.6 H Absolute Eos (auto) 0 Absolute Basos (auto) 0.1 Absolute Nucleated RBC 0 Nucleated RBC % 0.1 ABG pH ABG pCO2 ABG pO2 ABG HCO3 ABG O2 Saturation ABG Base Excess Sodium 138 Potassium 4.5 Chloride 104 Carbon Dioxide 18 L Anion Gap 16 H BUN 18 Creatinine 0.90 Est GFR ( Amer) 101.8 Est GFR (Non-Af Amer) 84.2 BUN/Creatinine Ratio 20.0 Glucose 207 H POC Glucose (mg/dL) 117 H Hemoglobin A1c Lactic Acid Calcium 8.3 L Magnesium 1.8 L Total Bilirubin 0.70 AST 21 ALT 26 Alkaline Phosphatase 35 C-Reactive Protein Total Protein 5.7 L Albumin 3.4 Globulin 2.3 Albumin/Globulin Ratio 1.5 Amylase Lipase Urine Color Urine Appearance Urine pH Ur Specific [place] Urine Protein Urine Ketones Urine Blood Urine Nitrate Urine Bilirubin Urine Urobilinogen Ur Leukocyte Esterase Urine Glucose 12/30/18 12/30/18 05:29 07:12 WBC RBC Hgb Hct MCV MCH MCHC RDW Plt Count MPV Neut % (Auto) Lymph % (Auto) [place] % (Auto) Eos % (Auto) Baso % (Auto) Absolute Neuts (auto) Absolute Lymphs (auto) Absolute Monos (auto) Absolute Eos (auto) Absolute Basos (auto) Absolute Nucleated RBC Nucleated RBC % ABG pH ABG pCO2 ABG pO2 ABG HCO3 ABG O2 Saturation ABG Base Excess Sodium Potassium Chloride Carbon Dioxide Anion Gap BUN Creatinine Est GFR ( Amer) Est GFR (Non-Af Amer) BUN/Creatinine Ratio Glucose POC Glucose (mg/dL) 208 H 236 H Hemoglobin A1c Lactic Acid Calcium Magnesium Total Bilirubin AST ALT Alkaline Phosphatase C-Reactive Protein Total Protein Albumin Globulin Albumin/Globulin Ratio Amylase Lipase Urine Color Urine Appearance Urine pH Ur Specific [place] Urine Protein Urine Ketones Urine Blood Urine Nitrate Urine Bilirubin Urine Urobilinogen Ur Leukocyte Esterase Urine Glucose Radiology Results: Patient Name: ARBEN KEARNEY Medical Record#: [id number] Ordering Physician: Tanya Marion MD Acct.#: [id number] : 1950 Age: 68 Sex: M Location: [facility] Exam Date: 12/29/18 1159 ADM Status: ADM IN Order Information: CHEST AP OR PORT Accession Number: [id number] CPT: 50782 Indication: Leukocytosis. Single frontal view of the chest performed at 1232 hours was reviewed. Comparison is made with previous exam dated August 31, 2016. No mediastinal shift is noted. Heart is of normal size and configuration. Lung craig appear clear. IMPRESSION: NO ACTIVE CARDIOPULMONARY DISEASE IS NOTED. <Electronically signed by Mary Kate Garcia MD in OV> 12/29/181450 Dictated By: Mary Kate Garcia MD Dictated Date/Time: 12/29/181450 Transcribed Date/Time: 12/29/181450 Copy to: CC:Marlon Gonsalez MD; Tanya Marion MD Imaging - [facility] Imaging - [place] [facility] [address] [address] ph [phone]) ph ([phone]) ph [phone]) Patient Name: ARBEN KEARNEY Medical Record#: [id number] Ordering Physician: Silverio Lentz MD Acct.#: [id number] : 1950 Age: 68 Sex: M Location: EMERGENCY DEPARTMENT Exam Date: 12/29/18930 ADM Status: REG ER Order Information: ABDOMEN (COMPLETE) 2 VWS Accession Number: [id number] CPT: 51166 INDICATION: Nausea and vomiting. COMPARISON: There are no relevant prior studies available for comparison. TECHNIQUE: Supine and upright views of the abdomen were obtained. FINDINGS: The small bowel and colon appear nondistended. No free intraperitoneal air is seen. There are small calcific densities which project bilaterally over the pelvis. IMPRESSION: NO EVIDENCE FOR OBSTRUCTION. <Electronically signed by Jaya Sainz MD in OV> 12/29/18 102 Dictated By: Jaya Sainz MD Dictated Date/Time: 12/29/18 102 Transcribed Date/Time: 12/29/18 102 Copy to: EKG Report: Sinus rhythm Qs in III and AVF Assessment - Problem List Assessment: Patient Problems Acute alcoholic intoxication (Acute) DKA, type 2 (Acute) Diabetic peripheral neuropathy (Acute) Essential (primary) hypertension (Chronic) Fatty liver (Chronic) Hyperlipidemia (Chronic) Insulin long-term use (Chronic) Personal history of alcoholism (Chronic) Type 2 diabetes mellitus (Chronic) Plan: DKA, type 2 (Acute)/Acute alcoholic intoxication (Acute) He presents with an acute metabolic acidosis with elevated lactic acid levels and positive urine ketones. He is on a ketotic diet and is therefore more prone to ketosis, he presented after an alcoholic binge. He continues to have an anion gap. He is receiving IVF, IV insulin. However, he is feeling much improved and feels he can eat this morning. I plan to restore his volume and have him metabolize his ketones. He is likely insulin resistant. He has had a fever, I am not sure of the origin for this as he has no signs of infection. He doesn't have an acute alcoholic hepatitis. He has not had an acute cardiac injury. Personal history of alcoholism (Chronic) He has relapsing and remitting alcoholism. He has been drinking recently. I think this Saturday's episode was due to loneliness. I discussed cessation, social connectedness. He agrees to stop once more. I have offered him naltrexone - I will start this once he recovers from this acute presentation. We discussed strategies. He has never had DTs or acute alcohol withdrawal syndrome and doesn't want to have an inpatient detox. 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 I will attempt to rehydrate him today. He will be metabolizing ketones for at least another 24 hours - but he can manage this from home as long as he is able to eat and drink. I will discharge him at the end of the day if he is improved.
[2018-12-30] MEDS ORDERED: Thiamine TAB* 100 MG TAB PO SCH (09:00)
[2018-12-30] MEDS ORDERED: Multivitamins/Minerals TAB PO SCH (09:00)
[2018-12-30] MEDS ORDERED: Folic Acid TAB* 1 MG PO SCH (09:00)
[2018-12-30] MEDS ORDERED: Lactated Ringers 1000 ML Bag* 1,000 ML IV SCH (10:00)
[2018-12-30] MEDS: Insulin LISPRO* 1 UNITS UNIT SUBCUT SCH ×4 (10:15→14:01)
[2018-12-30] MEDS ORDERED: Magnesium Chloride EC TAB* 64 MG PO ONE (10:35)
[2018-12-30] MEDS ORDERED: Calcium Carbonate CHEW TAB* 500 MG (TUMS) PO ONE (10:35)
[2018-12-30] MEDS ORDERED: hydrALAZINE IV* 20 MG/ML VIAL IV SLOW PU PRN (10:39)
--- NOTE | 2018-12-30 10:41 | PN ---
Date of Service: 12/30/18 - HD 2 Critical Care Services: This pt is a 68 y/o male presenting to [facility] c/o nausea and vomiting since 22: 30 last night. Pt reports vomiting has been more frequent in the last 3 hours. Denies abd pain, diarrhea, constipation, swelling in LE. He is a type 2 DM and the last time he had these symptoms he was in DKA. Pt has been compliant with medications but he did not take insulin this morning. He reports getting injections in bilateral eyes, steroids in left eye and fluids in right eye. Pt notes drinking alcohol on a daily basis and did drink yesterday. 4/2 - Anion gap reopened and restarted on insulin gtt overnight. Vital Signs: Temp Pulse Resp BP SpO2 FiO2 99.9 F 80 28 128/76 96 21 12/30/18 08:00 12/30/18 10:01 12/30/18 10:00 12/30/18 09:00 12/30/18 10:01 12/30 01:34 Physical Exam: Gen: alert, sitting up in chair texting, appears comfortable HEENT: intact, moist mucus membranes Lungs: nonlabored Cardiac: RRR Abdomen: nondistended Extremities: moving equally, no edema Neuro: alert and oriented Fluid Balance (Past 24 Hours): I= O= Net Intake & Output 12/28/18 12/29/18 12/30/18 12/31/18 06:59 06:59 06:59 06:59 Intake Total 4314.8 240 Output Total 2075 425 Balance 2239.8 -185 Weight 219 lb 2.232 oz Intake: IV Fluids 4192 D5W 1/2 NS 40 meq KCL 1242 NS (0.9%) 950 Medicated IV 122.8 CC - Insulin 122.8 Oral 240 Output: Urine 2075 425 Labs: Laboratory Results - last 24 hr 12/29/18 12/29/18 12/29/18 09:30 09:38 10:25 WBC RBC Hgb Hct MCV MCH MCHC RDW Plt Count MPV Neut % (Auto) Lymph % (Auto) [place] % (Auto) Eos % (Auto) Baso % (Auto) Absolute Neuts (auto) Absolute Lymphs (auto) Absolute Monos (auto) Absolute Eos (auto) Absolute Basos (auto) Absolute Nucleated RBC Nucleated RBC % ABG pH 7.23 L ABG pCO2 23 L ABG pO2 103 H ABG HCO3 12.4 L ABG O2 Saturation 97.7 ABG Base Excess -16.0 L Sodium Potassium Chloride Carbon Dioxide Anion Gap BUN Creatinine Est GFR ( Amer) Est GFR (Non-Af Amer) BUN/Creatinine Ratio Glucose POC Glucose (mg/dL) Hemoglobin A1c Lactic Acid 6.2 H* Calcium Magnesium Total Bilirubin AST ALT Alkaline Phosphatase Total Protein Albumin Globulin Albumin/Globulin Ratio Urine Color Yellow Urine Appearance Clear Urine pH 5.0 Ur Specific [place] 1.017 Urine Protein Negative Urine Ketones 2+ A Urine Blood Negative Urine Nitrate Negative Urine Bilirubin Negative Urine Urobilinogen Negative Ur Leukocyte Esterase Negative Urine Glucose 3+(>=500 mg/dl) A 12/29/18 12/29/18 12/29/18 11:37 12:35 13:09 WBC RBC Hgb Hct MCV MCH MCHC RDW Plt Count MPV Neut % (Auto) Lymph % (Auto) [place] % (Auto) Eos % (Auto) Baso % (Auto) Absolute Neuts (auto) Absolute Lymphs (auto) Absolute Monos (auto) Absolute Eos (auto) Absolute Basos (auto) Absolute Nucleated RBC Nucleated RBC % ABG pH ABG pCO2 ABG pO2 ABG HCO3 ABG O2 Saturation ABG Base Excess Sodium Potassium Chloride Carbon Dioxide Anion Gap BUN Creatinine Est GFR ( Amer) Est GFR (Non-Af Amer) BUN/Creatinine Ratio Glucose POC Glucose (mg/dL) 312 H 266 H 229 H Hemoglobin A1c Lactic Acid Calcium Magnesium Total Bilirubin AST ALT Alkaline Phosphatase Total Protein Albumin Globulin Albumin/Globulin Ratio Urine Color Urine Appearance Urine pH Ur Specific [place] Urine Protein Urine Ketones Urine Blood Urine Nitrate Urine Bilirubin Urine Urobilinogen Ur Leukocyte Esterase Urine Glucose 12/29/18 12/29/18 12/29/18 14:33 14:55 14:55 WBC RBC Hgb Hct MCV MCH MCHC RDW Plt Count MPV Neut % (Auto) Lymph % (Auto) [place] % (Auto) Eos % (Auto) Baso % (Auto) Absolute Neuts (auto) Absolute Lymphs (auto) Absolute Monos (auto) Absolute Eos (auto) Absolute Basos (auto) Absolute Nucleated RBC Nucleated RBC % ABG pH ABG pCO2 ABG pO2 ABG HCO3 ABG O2 Saturation ABG Base Excess Sodium 141 Potassium 4.5 Chloride 101 Carbon Dioxide 14 L* Anion Gap 26 H BUN 20 Creatinine 1.10 Est GFR ( Amer) 80.8 Est GFR (Non-Af Amer) 66.8 BUN/Creatinine Ratio 18.2 Glucose 154 H POC Glucose (mg/dL) 178 H Hemoglobin A1c 7.4 H Lactic Acid Calcium 9.1 Magnesium 1.9 Total Bilirubin AST ALT Alkaline Phosphatase Total Protein Albumin Globulin Albumin/Globulin Ratio Urine Color Urine Appearance Urine pH Ur Specific [place] Urine Protein Urine Ketones Urine Blood Urine Nitrate Urine Bilirubin Urine Urobilinogen Ur Leukocyte Esterase Urine Glucose 12/29/18 12/29/18 12/29/18 14:55 15:59 17:13 WBC RBC Hgb Hct MCV MCH MCHC RDW Plt Count MPV Neut % (Auto) Lymph % (Auto) [place] % (Auto) Eos % (Auto) Baso % (Auto) Absolute Neuts (auto) Absolute Lymphs (auto) Absolute Monos (auto) Absolute Eos (auto) Absolute Basos (auto) Absolute Nucleated RBC Nucleated RBC % ABG pH ABG pCO2 ABG pO2 ABG HCO3 ABG O2 Saturation ABG Base Excess Sodium Potassium Chloride Carbon Dioxide Anion Gap BUN Creatinine Est GFR ( Amer) Est GFR (Non-Af Amer) BUN/Creatinine Ratio Glucose POC Glucose (mg/dL) 164 H 185 H Hemoglobin A1c Lactic Acid 3.5 H* Calcium Magnesium Total Bilirubin AST ALT Alkaline Phosphatase Total Protein Albumin Globulin Albumin/Globulin Ratio Urine Color Urine Appearance Urine pH Ur Specific [place] Urine Protein Urine Ketones Urine Blood Urine Nitrate Urine Bilirubin Urine Urobilinogen Ur Leukocyte Esterase Urine Glucose 12/29/18 12/29/18 12/29/18 18:11 18:55 19:02 WBC RBC Hgb Hct MCV MCH MCHC RDW Plt Count MPV Neut % (Auto) Lymph % (Auto) [place] % (Auto) Eos % (Auto) Baso % (Auto) Absolute Neuts (auto) Absolute Lymphs (auto) Absolute Monos (auto) Absolute Eos (auto) Absolute Basos (auto) Absolute Nucleated RBC Nucleated RBC % ABG pH ABG pCO2 ABG pO2 ABG HCO3 ABG O2 Saturation ABG Base Excess Sodium 137 Potassium 4.3 Chloride 104 Carbon Dioxide 22 Anion Gap 11 BUN 19 Creatinine 1.02 Est GFR ( Amer) 88.1 Est GFR (Non-Af Amer) 72.8 BUN/Creatinine Ratio 18.6 Glucose 194 H POC Glucose (mg/dL) 172 H 184 H Hemoglobin A1c Lactic Acid Calcium 8.6 Magnesium Total Bilirubin AST ALT Alkaline Phosphatase Total Protein Albumin Globulin Albumin/Globulin Ratio Urine Color Urine Appearance Urine pH Ur Specific [place] Urine Protein Urine Ketones Urine Blood Urine Nitrate Urine Bilirubin Urine Urobilinogen Ur Leukocyte Esterase Urine Glucose 12/29/18 12/29/18 12/29/18 20:07 20:58 22:01 WBC RBC Hgb Hct MCV MCH MCHC RDW Plt Count MPV Neut % (Auto) Lymph % (Auto) [place] % (Auto) Eos % (Auto) Baso % (Auto) Absolute Neuts (auto) Absolute Lymphs (auto) Absolute Monos (auto) Absolute Eos (auto) Absolute Basos (auto) Absolute Nucleated RBC Nucleated RBC % ABG pH ABG pCO2 ABG pO2 ABG HCO3 ABG O2 Saturation ABG Base Excess Sodium Potassium Chloride Carbon Dioxide Anion Gap BUN Creatinine Est GFR ( Amer) Est GFR (Non-Af Amer) BUN/Creatinine Ratio Glucose POC Glucose (mg/dL) 283 H 290 H 271 H Hemoglobin A1c Lactic Acid Calcium Magnesium Total Bilirubin AST ALT Alkaline Phosphatase Total Protein Albumin Globulin Albumin/Globulin Ratio Urine Color Urine Appearance Urine pH Ur Specific [place] Urine Protein Urine Ketones Urine Blood Urine Nitrate Urine Bilirubin Urine Urobilinogen Ur Leukocyte Esterase Urine Glucose 12/29/18 12/29/18 12/30/18 23:13 23:16 00:03 WBC RBC Hgb Hct MCV MCH MCHC RDW Plt Count MPV Neut % (Auto) Lymph % (Auto) [place] % (Auto) Eos % (Auto) Baso % (Auto) Absolute Neuts (auto) Absolute Lymphs (auto) Absolute Monos (auto) Absolute Eos (auto) Absolute Basos (auto) Absolute Nucleated RBC Nucleated RBC % ABG pH ABG pCO2 ABG pO2 ABG HCO3 ABG O2 Saturation ABG Base Excess Sodium Potassium Chloride Carbon Dioxide Anion Gap BUN Creatinine Est GFR ( Amer) Est GFR (Non-Af Amer) BUN/Creatinine Ratio Glucose POC Glucose (mg/dL) 162 H 171 H 131 H Hemoglobin A1c Lactic Acid Calcium Magnesium Total Bilirubin AST ALT Alkaline Phosphatase Total Protein Albumin Globulin Albumin/Globulin Ratio Urine Color Urine Appearance Urine pH Ur Specific [place] Urine Protein Urine Ketones Urine Blood Urine Nitrate Urine Bilirubin Urine Urobilinogen Ur Leukocyte Esterase Urine Glucose 12/30/18 12/30/18 12/30/18 01:03 01:20 02:01 WBC RBC Hgb Hct MCV MCH MCHC RDW Plt Count MPV Neut % (Auto) Lymph % (Auto) [place] % (Auto) Eos % (Auto) Baso % (Auto) Absolute Neuts (auto) Absolute Lymphs (auto) Absolute Monos (auto) Absolute Eos (auto) Absolute Basos (auto) Absolute Nucleated RBC Nucleated RBC % ABG pH ABG pCO2 ABG pO2 ABG HCO3 ABG O2 Saturation ABG Base Excess Sodium 139 Potassium 3.8 Chloride 108 Carbon Dioxide 26 Anion Gap 5 BUN 19 Creatinine 0.96 Est GFR ( Amer) 94.5 Est GFR (Non-Af Amer) 78.1 BUN/Creatinine Ratio 19.8 Glucose 92 POC Glucose (mg/dL) 79 80 Hemoglobin A1c Lactic Acid Calcium 8.5 L Magnesium Total Bilirubin AST ALT Alkaline Phosphatase Total Protein Albumin Globulin Albumin/Globulin Ratio Urine Color Urine Appearance Urine pH Ur Specific [place] Urine Protein Urine Ketones Urine Blood Urine Nitrate Urine Bilirubin Urine Urobilinogen Ur Leukocyte Esterase Urine Glucose 12/30/18 12/30/18 12/30/18 03:07 05:29 05:29 WBC 12.8 H RBC 3.98 L Hgb 13.4 L Hct 40 MCV 100 H MCH 34 H MCHC 34 RDW 13 Plt Count 169 MPV 7.4 Neut % (Auto) 74.0 Lymph % (Auto) 12.7 [place] % (Auto) 12.4 Eos % (Auto) 0.2 Baso % (Auto) 0.7 Absolute Neuts (auto) 9.4 H Absolute Lymphs (auto) 1.6 Absolute Monos (auto) 1.6 H Absolute Eos (auto) 0 Absolute Basos (auto) 0.1 Absolute Nucleated RBC 0 Nucleated RBC % 0.1 ABG pH ABG pCO2 ABG pO2 ABG HCO3 ABG O2 Saturation ABG Base Excess Sodium 138 Potassium 4.5 Chloride 104 Carbon Dioxide 18 L Anion Gap 16 H BUN 18 Creatinine 0.90 Est GFR ( Amer) 101.8 Est GFR (Non-Af Amer) 84.2 BUN/Creatinine Ratio 20.0 Glucose 207 H POC Glucose (mg/dL) 117 H Hemoglobin A1c Lactic Acid Calcium 8.3 L Magnesium 1.8 L Total Bilirubin 0.70 AST 21 ALT 26 Alkaline Phosphatase 35 Total Protein 5.7 L Albumin 3.4 Globulin 2.3 Albumin/Globulin Ratio 1.5 Urine Color Urine Appearance Urine pH Ur Specific [place] Urine Protein Urine Ketones Urine Blood Urine Nitrate Urine Bilirubin Urine Urobilinogen Ur Leukocyte Esterase Urine Glucose 12/30/18 12/30/18 12/30/18 05:29 07:12 08:04 WBC RBC Hgb Hct MCV MCH MCHC RDW Plt Count MPV Neut % (Auto) Lymph % (Auto) [place] % (Auto) Eos % (Auto) Baso % (Auto) Absolute Neuts (auto) Absolute Lymphs (auto) Absolute Monos (auto) Absolute Eos (auto) Absolute Basos (auto) Absolute Nucleated RBC Nucleated RBC % ABG pH ABG pCO2 ABG pO2 ABG HCO3 ABG O2 Saturation ABG Base Excess Sodium Potassium Chloride Carbon Dioxide Anion Gap BUN Creatinine Est GFR ( Amer) Est GFR (Non-Af Amer) BUN/Creatinine Ratio Glucose POC Glucose (mg/dL) 208 H 236 H 216 H Hemoglobin A1c Lactic Acid Calcium Magnesium Total Bilirubin AST ALT Alkaline Phosphatase Total Protein Albumin Globulin Albumin/Globulin Ratio Urine Color Urine Appearance Urine pH Ur Specific [place] Urine Protein Urine Ketones Urine Blood Urine Nitrate Urine Bilirubin Urine Urobilinogen Ur Leukocyte Esterase Urine Glucose 12/30/18 10:04 WBC RBC Hgb Hct MCV MCH MCHC RDW Plt Count MPV Neut % (Auto) Lymph % (Auto) [place] % (Auto) Eos % (Auto) Baso % (Auto) Absolute Neuts (auto) Absolute Lymphs (auto) Absolute Monos (auto) Absolute Eos (auto) Absolute Basos (auto) Absolute Nucleated RBC Nucleated RBC % ABG pH ABG pCO2 ABG pO2 ABG HCO3 ABG O2 Saturation ABG Base Excess Sodium Potassium Chloride Carbon Dioxide Anion Gap BUN Creatinine Est GFR ( Amer) Est GFR (Non-Af Amer) BUN/Creatinine Ratio Glucose POC Glucose (mg/dL) 169 H Hemoglobin A1c Lactic Acid Calcium Magnesium Total Bilirubin AST ALT Alkaline Phosphatase Total Protein Albumin Globulin Albumin/Globulin Ratio Urine Color Urine Appearance Urine pH Ur Specific [place] Urine Protein Urine Ketones Urine Blood Urine Nitrate Urine Bilirubin Urine Urobilinogen Ur Leukocyte Esterase Urine Glucose Studies: 12/29 CXR - NAD 12/29 AXR - NAD Nutrition: Carb control diet Impression: 68 yo M with DM type 2 admitted with DKA on 12/29 Plan: 68 yo M with Diabetes mellitus type 2, controlled on oral hypoglycemics presents with nausea and vomiting similar to prior episodes of DKA. On evaluation in ED found to be in DKA. Bolused IVF and started on insulin gtt. Plan: Cardiovascular: (1) Sinus tachycardia secondary to DKA, resolving; (2) Chronic HTN; (3) Hyperlipidemia -- HR 72-105 -- SBP 94-186 -- Telemetry -- PRN Hydralazine for goal SBP < 160 Home meds: "a BP med" Pulmonary: No acute issues -- RR 13-30 -- sats 86-100 on NC Home meds: None Gastrointestinal: (1) Minimally elevated AST; (2) Chronic GERD -- diet: Carb control -- bowel regimen: None -- ulcer prophylaxis: Not indicated at this time Home meds: None Endocrine: (1) DKA; (2) Diabetes mellitus type 2 -- monitor BGs -- Insulin per DKA protocol -- Lantus Home meds: oral hypoglycemic Renal: No acute issues -- I/O 4315 ml in / 2075 ml out -- Cr 1.10 -- Lytes Na 138 from 143 K 4.5 Ca 8.3, replace Mag 1.8, replace -- IVF: D51/2NS @ 150 ml/hr Home meds: None Infectious disease: (1) Leukocytosis; (2) Possible sepsis -- Tmax 101.2 -- WBC 12.8 from 16.0 -- Micro 4/1 UA negative blood ordered MRSA screen negative -- ABX None Home meds: None Neurologic: (1) Hx of alcoholism -- [facility] protocol -- Tylenol as needed -- Folic acid, Thiamine, MVI Home meds: None Hematological: No acute issues -- Hgb 13.4 from 15.8 -- Plt 169 from 240 -- DVT prophylaxis: SQ Lovenox Home meds: None Metabolic: (1) Metabolic, lactic acidosis secondary to DKA -- Lactic acid 3.5 from 6.2, follow trend -- HCO3 18 from 26 -- AG 16 from 5 form 11 from 26 from 37 Home meds: None Deep vein thrombosis prophylaxis: SQ Lovenox Dietary: Not indicated at this time Condition: critical Prognosis: good Code status: full Disposition: continue ICU care Family updated at bedside regarding interval events and plan of care Cumulative time spent in the care of this patient (excluding any procedure time) : at least 40 minutes. Patient care included clinical interview (with patient and/or family), bedside exam of the patient, review of labs, x-rays, and other ancillary data, coordination of (respiratory, nursing care, review of patient's records, discussion regarding patients management with involved consultants, primary physician, pharmacists, and other healthcare personnel (dietary, case management , physical/occupational therapy etc.)
[2018-12-30 12:37] LABS: BUN/Creatinine Ratio 17.6 (8-20); Blood Urea Nitrogen 15 mg/dL (6-24); CO2 Carbon Dioxide 26 mmol/L (22-32); Calcium 8.4 mg/dL (8.6-10.3); Chloride 104 mmol/L (101-111); EGFR African American 108.8 (>60); EGFR Non-African American 89.9 (>60); Glucose 133 mg/dL (70-100); Sodium 136 mmol/L (135-145)
[2018-12-30 13:17] LABS: Anion Gap 6 mmol/L (2-11)
[2018-12-30] MEDS: Enoxaparin(*) 40 MG/0.4 ML SYR SUBCUT SCH (14:02)
--- NOTE | 2018-12-30 14:21 | PN ---
Progress Note - Progress Note Date of Service: 12/30/18 Note: Investigations: Laboratory Tests 12/30/18 12:10 Sodium 136 Chloride 104 Carbon Dioxide 26 Anion Gap 6 BUN 15 Est GFR (Non-Af Amer) 89.9 Glucose 133 H I spoke with the RN on the ICU. He ate breakfast and lunch with no problem. He has stopped IV insulin. He is able to walk without any supervision. He is ready for discharge. He will take some humalog insulin for a couple of days while he is clearing the remainder of the ketones. I will not start the empagliflozin until he has seen me as an outpatient. He will start naltrexone at that visit.
[2018-12-30 15:20] VITALS: BP 126/95
== END 2018-12-30 16:10 | disposition home or self-care (01) | DRG 639 ==
LOC: ED 09:15 → ICU 11:26
PROVIDERS: ADMIT Internal Medicine Critical Care Medicine; ATTEND Internal Medicine Critical Care Medicine
DX: E11.10 Type 2 diabetes mellitus with ketoacidosis without coma (principal); E78.5 Hyperlipidemia, unspecified; K76.0 Fatty (change of) liver, not elsewhere classified; I10 Essential (primary) hypertension; E11.42 Type 2 diabetes mellitus with diabetic polyneuropathy; E78.00 Pure hypercholesterolemia, unspecified; G47.30 Sleep apnea, unspecified; E11.36 Type 2 diabetes mellitus with diabetic cataract; F10.129 Alcohol abuse with intoxication, unspecified; Y90.9 Presence of alcohol in blood, level not specified; K21.9 Gastro-esophageal reflux disease without esophagitis; E11.319 Type 2 diabetes mellitus with unspecified diabetic retinopathy without macular edema; Z79.4 Long term (current) use of insulin; Z79.82 Long term (current) use of aspirin; Z90.10 Acquired absence of unspecified breast and nipple; Z83.3 Family history of diabetes mellitus; Z88.8 Allergy status to other drugs, medicaments and biological substances
CPT/HCPCS: 36415; 71045; 74019; 80048; 80053; 81003; 82150; 82803; 83036; 83605; 83690; 83735; 85025; 86140; 87040; 87641; 93005; 94660; 99285; A9270-GY; G8978-GP-CJ; G8979-GP-CI; J1650; J1815; J2060; J2405

== ENCOUNTER 2019-08-20 06:05 | Inpatient (IN) | payer MEDICARE ==
[2019-08-20] MEDS ORDERED: NS 0.9% 1000 ML** 2,000 ML IV ONE ×2 (06:14→08:04)
[2019-08-20] MEDS ORDERED: Ondansetron INJ* 2 MG/ML VIAL IV ONE (06:15)
--- NOTE | 2019-08-20 06:17 | ED ---
HPI Diabetic - HPI Summary HPI Summary: 69-year-old male with a history of insulin dependent diabetes type 2 presents with nausea and vomiting since this morning. He states that he felt very weak this morning and then started vomiting. He then became short of breath. Denies any chest pain. No urinary symptoms. No vomiting. Did have episodes of diarrhea. No headache. No cough. No recent illness. He states this feels the same as when he was in DKA. He took his insulin this morning. EMS said his sugar read high. and start giving him fluids. 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 - History Of Current Complaint Time Seen by Provider: 08/20/19 06:07 - Allergies/Home Medications Allergies/Adverse Reactions: Allergies Allergy/AdvReac Type Severity Reaction Status Date / Time fluoxetine [From Prozac] Allergy Anxiety Verified 08/20/19 07:36 SSRI Allergy Anxiety Uncoded 12/29/18 09:50 PMH/Surg Hx/FS Hx/Imm Hx Endocrine/Hematology History: Reports: Hx Diabetes - TYPE II- INSULIN OR ORAL MEDICATION FOR Denies: Hx Anticoagulant Therapy, Hx Blood Disorders, Hx Blood Transfusions, Hx Bone Marrow Disease, Hx Systemic Lupus Erythematosus, Hx Sickle Cell Disease , Hx Thyroid Disease, Hx Anemia, Hx Unexplained Bleeding, Other Endocrine/ Hematological Disorders Cardiovascular History: Reports: Hx Hypercholesterolemia - no longer taking medication for , Hx Hypertension - no longer taking medication for Denies: Hx Aneurysm, Hx Angina, Hx Angioplasty, Hx Auto Implanted Cardiovert Defib, Hx Cardiac Arrest, Hx Cardiomegaly, Hx Congenital Heart Disease, Hx Congestive Heart Failure, Hx Coronary Artery Disease, Hx Deep Vein Thrombosis, Hx Embolism, Hx Hypotension, Hx Pacemaker/ICD, Hx Peripheral Vascular Disease, Hx Rheumatic Fever, Hx Syncope, Hx Valvular Heart Disease, Other Cardiovascular Problems/Disorders Respiratory History: Reports: Hx Sleep Apnea GI History: Reports: Hx Gastroesophageal Reflux Disease, Other GI Disorders - HISTORY OF SLIGHTLY ENLARGED LIVER-PRIOR TO LOOSING WEIGHT Denies: Hx Cirrhosis, Hx Crohn's Disease, Hx Diverticulosis, Hx Gall Bladder Disease, Hx Gastrointestinal Bleed, Hx Hiatal Hernia, Hx Irritable Bowel, Hx Jaundice, Hx Obstructive Bowel, Hx Ileostomy, Hx Pyloric Stenosis, Hx Ulcer Sensory History: Reports: Hx Cataracts - LEFT, Hx Contacts or Glasses - READING GLASSES Denies: Hx Eye Injury, Hx Eye Prosthesis, Hx Glaucoma, Hx Legally Blind, Hx Macular Degeneration, Hx Vision Problem, Hx Deafness, Hx Hearing Aid, Hx Hearing Problem, Other Sensory Impairments Opthamlomology History: Reports: Hx Cataracts - LEFT, Hx Contacts or Glasses - READING GLASSES Denies: Hx Eye Injury, Hx Eye Prosthesis, Hx Glaucoma, Hx Legally Blind, Hx Macular Degeneration, Hx Vision Problem, Other Sensory Impairments - Surgical History Surgery Procedure, Year, and Place: LEFT EYE RETINA REPAIR- [place]. 10 YEARS AGO-PLASTIC SURGERY[place]. 20 YEARS AGO-[place] [place]ERY[place] Hx Anesthesia Reactions: No Infectious Disease History: Denies: Hx Hepatitis - Family History Known Family History: Negative: Cardiac Disease, Hypertension, Diabetes - Social History Alcohol Use: Daily Alcohol Amount: "quite a bit" vodka 2-3 glasses Substance Use Type: Reports: Marijuana Substance Use Comment - Amount & Last Used: ocassionally Smoking Status (MU): Never Smoked Tobacco Review of Systems Negative: Fever Negative: Chest Pain Positive: Shortness Of Breath. Negative: Cough Positive: Vomiting, Diarrhea, Nausea. Negative: Abdominal Pain All Other Systems Reviewed And Are Negative: Yes Physical Exam Triage Information Reviewed: Yes Vital Signs Reviewed: Yes Skin: Positive: Warm, Dry Head/Face: Positive: Normal Head/Face Inspection Eyes: Positive: Normal, Conjunctiva Clear ENT: Positive: Pharynx normal Respiratory/Lung Sounds: Positive: Clear to Auscultation, Breath Sounds Present , Other - tachypneic Cardiovascular: Positive: Normal, RRR Abdomen Description: Positive: Nontender, Soft Bowel Sounds: Positive: Present Musculoskeletal: Positive: Normal Neurological: Positive: Normal Psychiatric: Positive: Normal Diagnostics - Laboratory Result Diagrams: 08/20/19 06:21 08/20/19 06:21 Lab Statement: Any lab studies that have been ordered have been reviewed, and results considered in the medical decision making process. - EKG No standard instances Cardiac Rate: NL EKG Rhythm: Sinus Rhythm EKG Comparison: No Significant Change Summary of EKG Findings: sinus rhythm Re-Evaluation - Re-Evaluation First Eval Re-Evaluation Time: 07:29 Change: Unchanged Comment: states feels the same, appears less dry Second Eval Re-Evaluation Time: 08:04 Comment: finishing 4 liter, patient only urinated a small amount so will give another 2 liters Diabetic Course/Dx - Course Course Of Treatment: 69-year-old male with a history of diabetes type 2 presents with nausea and vomiting since this morning. He states that he felt very weak this morning and then started vomiting. He then became short of breath. Denies any chest pain. No urinary symptoms. No vomiting. Did have episodes of diarrhea. No headache. No cough. No recent illness. He states this feels the same as when he was in DKA. He took his insulin this morning. EMS said his sugar read high. and start giving him fluids. On exam he is tachypnic. Lungs clear auscultation. Abdomen soft nontender. finger stick reads over range. gave 4 liters of fluid. wbc 21. lactic 3.2. glucose is 628. ekg does shows peaked T waves. potassium is 7.3. ph 7.09. CO2 7 likely due to hyperventilation. hco3 5.9. gave insulin bolus and started on drip. discussed with dr klein who agrees to admit. Assessment/Plan: I evaluated the patient with Lauryn BAZZI. See her dictated note. Briefly, this is a patient who presented with weakness and tachycardia, with a prior history of DKA. He reports to me his been compliant with his medications and no recent illnesses. His laboratory studies reflect a metabolic acidosis with respiratory compensation, also hyperkalemia with EKG changes including peak T waves, I suspect this is due to volume depletion. He has no chest pain currently. There are no arrhythmia. Plan for volume repletion and intravenous insulin drip. Critical care time: 90 minutes - Diagnoses Differential Dx: Diabetic Ketoacidosis, Hyperosmolar State, Sepsis Provider Diagnoses: DKA, type 2 Discharge ED - Sign-Out/Discharge Documenting (check all that apply): Patient Departure - Discharge Plan Condition: Guarded Disposition: ADMITTED TO [facility] - Billing Disposition and Condition Condition: GUARDED Disposition: Admitted to [facility]
[2019-08-20 06:37] LABS: Hematocrit 46 % (42-52); Hemoglobin 14.8 g/dL (14.0-18.0); Mean Corpuscular HGB Conc 32 g/dL (31-36); Mean Corpuscular Hemoglobin 33 pg (27-31); Mean Corpuscular Volume 102 fL (80-94); Mean Platelet Volume 8.5 fL (7.4-10.4); Platelet Count 303 10^3/uL (150-450); Red Blood Count 4.46 10^6 /uL (4.18-5.48); Red Cell Distribution Width 13 % (10-15); White Blood Count 21.7 10^3/uL (3.5-10.8)
[2019-08-20] MEDS: NS 0.9% 1000 ML** 2,000 ML IV ONE ×2 (06:53→08:44)
[2019-08-20 06:55] LABS: ALT 24 U/L (7-52); Albumin 3.6 g/dL (3.2-5.2); Albumin/Globulin Ratio 1.2 (1-3); Alkaline Phosphatase 60 U/L (34-104); BUN/Creatinine Ratio 16.9 (8-20); Blood Urea Nitrogen 34 mg/dL (6-24); C Reactive Protein 11.16 mg/L (<8.01); Calcium 8.7 mg/dL (8.6-10.3); Chloride 92 mmol/L (101-111); EGFR African American 40.2 (>60); EGFR Non-African American 33.2 (>60); Globulin 3.1 g/dL (2-4); Magnesium 2.3 mg/dL (1.9-2.7); Sodium 131 mmol/L (135-145); Total Protein 6.7 g/dL (6.4-8.9)
[2019-08-20 06:58] LABS: Influenza A Molecular NEGATIVE (Negative); Influenza B Molecular NEGATIVE (Negative)
[2019-08-20 07:05] LABS: Glucose 628 mg/dL (70-100)
[2019-08-20] MEDS ORDERED: Insulin REGULAR(*) 1 UNITS UNIT SUBCUT ONE (07:18)
[2019-08-20 07:22] LABS: CO2 Carbon Dioxide < 7 mmol/L (22-32); Potassium 7.3 mmol/L (3.5-5.0)
[2019-08-20] MEDS ORDERED: Insulin REGULAR(*) 1 UNITS UNIT IV PUSH ONE (07:22)
[2019-08-20 07:38] LABS: ABS Basophils 0.2 10^3/ul (0-0.2); ABS Lymphocytes 2.2 10^3/ul (1.0-4.8); ABS Monocytes 1.6 10^3/ul (0-0.8); ABS Neutrophils 17.7 10^3/ul (1.5-7.7); Eosinophil % 0.2 %
[2019-08-20] MEDS: Insulin Infusion 100unit/100mL 100 UNITS/100 ML UNIT IV SCH ×2 (07:55→15:01)
[2019-08-20 08:41] LABS: Urine Appearance Cloudy; Urine Bilirubin Negative (Negative); Urine Blood Negative (Negative); Urine Color Yellow; Urine Glucose 3+(>=500 mg/dL) (Negative); Urine Ketones 2+ (Negative); Urine Nitrite Negative (Negative); Urine Protein Negative (Negative); Urine Specific Gravity 1.017 (1.010-1.030); Urine Urobilinogen Negative (Negative)
[2019-08-20 09:51] LABS: Glucose 497 mg/dL (70-100)
[2019-08-20 09:59] LABS: AST 23 U/L (13-39)
[2019-08-20 10:07] LABS: Glucose 467 mg/dL (70-100)
[2019-08-20 12:04] LABS: Glucose 331 mg/dL (70-100)
[2019-08-20] MEDS ORDERED: LORazepam INJ* 2 MG/ML 1 ML VIAL IV PUSH PRN (12:18)
[2019-08-20] MEDS ORDERED: Lorazepam PYXIS KEY PRN (12:18)
--- NOTE | 2019-08-20 13:18 | HP ---
ADMISSION HISTORY AND PHYSICAL: DATE OF ADMISSION: 08/20/19 REASON FOR ADMISSION: Diabetic ketoacidosis. HISTORY OF PRESENT ILLNESS: The patient is a 69-year-old male with a history of insulin-dependent diabetes (type 2) who presented to the emergency room this morning with a recent history of nausea and blood work in the ED revealed a glucose of 628, bicarb less than 7, potassium 7.3, lactate of 3.2, an arterial pH is 7.09 with a pCO2 of 7. The patient was given the diagnosis of diabetic ketoacidosis and was given approximately 3 L of saline along with a bolus of insulin followed by an infusion. The patient denies any symptoms suggesting a respiratory infection or urinary tract infection. Other medical problems include hypertension and hypercholesterolemia. There is also a history of ethanol abuse but patient denies recent use. Patient claims he has been compliant with insulin dosing. MEDICATIONS: 1. Amlodipine 10 mg daily. 2. Aspirin 81 mg daily. 3. Lantus insulin 50 units every 24 hours. ALLERGIES: Drug allergies include FLUOXETINE (reaction unknown) and SSRIs ( reaction unknown). PHYSICAL EXAMINATION GENERAL: The patient is alert and oriented, but appears anxious. VITAL SIGNS: Temp 96.8, blood pressure 140/63, heart rate 88 and regular, respiratory rate 28, O2 sat 96% on nasal O2. HEENT: Pupils are reactive. There is no facial asymmetry. Oropharynx is not injected. LUNGS: Clear to auscultation. CARDIAC: Exam reveals no murmurs. ABDOMEN: Not distended. EXTREMITIES: Warm. Not cyanotic and not edematous. DIAGNOSTIC STUDIES/LAB DATA: Admission laboratory data: As reported in the history of present illness. In addition, electrocardiogram showed a left axis deviation with some peaking to the T waves. Chest x-ray is pending and a serum alcohol level is pending. IMPRESSION: Diabetic ketoacidosis without an apparent inciting event. . MANAGEMENT PLAN: 1. Standard management for ketoacidosis; i.e.,fluid and insulin infusions initially, while monitoring acid-base status, and switch to subQ insulin when anion gap normalizes. 2. Serum ETOH level and watch for signs of ETOH withdrawal. CRITICAL CARE TIME: 45 minutes. [id number]/[facility] #: [id number]
[2019-08-20] MEDS ORDERED: Insulin REGULAR(*) 1 UNITS UNIT IV ONE (15:00)
[2019-08-20 16:10] LABS: Calcium 8.4 mg/dL (8.6-10.3); EGFR Non-African American 50.4 (>60); Potassium 4.3 mmol/L (3.5-5.0)
[2019-08-20] MEDS ORDERED: Insulin LISPRO* 1 UNITS UNIT SUBCUT SCH (17:00)
[2019-08-20] MEDS: Lactated Ringers 1000 ML Bag* 1,000 ML IV SCH (17:02)
[2019-08-20] MEDS: Insulin LISPRO* 1 UNITS UNIT SUBCUT SCH (20:20)
[2019-08-20] MEDS ORDERED: Insulin GLARGINE(*) 1 UNITS UNIT SUBCUT ONE (21:00)
[2019-08-21] MEDS: Insulin LISPRO* 1 UNITS UNIT SUBCUT SCH ×6 (00:04→20:52)
[2019-08-21] MEDS: Lactated Ringers 1000 ML Bag* 1,000 ML IV SCH ×2 (03:08→13:07)
[2019-08-21 05:02] LABS: ABS Lymphocytes 1.9 10^3/ul (1.0-4.8); ABS Monocytes 1.2 10^3/ul (0-0.8); ABS Neutrophils 11.7 10^3/ul (1.5-7.7); Eosinophil % 0.2 %; Hematocrit 40 % (42-52); Hemoglobin 13.7 g/dL (14.0-18.0); Lymphocyte % 12.8 %; Mean Corpuscular HGB Conc 34 g/dL (31-36); Mean Corpuscular Hemoglobin 33 pg (27-31); Mean Corpuscular Volume 96 fL (80-94); Mean Platelet Volume 8.4 fL (7.4-10.4); Platelet Count 221 10^3/uL (150-450); Red Cell Distribution Width 13 % (10-15); White Blood Count 14.9 10^3/uL (3.5-10.8)
[2019-08-21 05:25] LABS: Calcium 8.4 mg/dL (8.6-10.3); EGFR Non-African American 70.2 (>60); Potassium 4.5 mmol/L (3.5-5.0)
[2019-08-21] MEDS ORDERED: Lactated Ringers 1000 ML Bag* 1,000 ML IV SCH (08:00)
[2019-08-21] MEDS: Insulin GLARGINE(*) 1 UNITS UNIT SUBCUT SCH (11:02)
--- NOTE | 2019-08-21 13:17 | PN ---
Date of Service: 08/21/19 Critical Care Services: DKA resolving Vital Signs: Temp Pulse Resp BP SpO2 FiO2 36.5 C 72 15 133/69 97 08/21/19 11:29 08/21/19 11:00 08/21/19 11:00 08/21/19 11:00 08/21/19 11:00 Physical Exam: Gen: awake and alert without complaint, appears non-toxic HEENT: NCAT, PERRL Lungs: clear bilat Cardiac: S1S2 regular, no murmur Abdomen: soft, NT, ND, +BS Extremities: no edema Neuro: A&O, grossly non-focal Fluid Balance (Past 24 Hours): I= O= Net Intake & Output 08/19/19 08/20/19 08/21/19 08/22/19 06:59 06:59 06:59 06:59 Intake Total 1999 4468.4 Output Total 2125 825 Balance 1999 2343.4 -825 Weight 98.883 kg 99.592 kg Intake: IV Fluids 1999 3200 LR 1200 Medicated IV 68.4 CC - Insulin 68.4 Oral 1200 Output: Urine 2125 825 Other: # Voids 1 Labs: Laboratory Results - last 24 hr 08/20/19 08/20/19 08/20/19 13:00 14:04 15:01 WBC RBC Hgb Hct MCV MCH MCHC RDW Plt Count MPV Neut % (Auto) Lymph % (Auto) Hudson % (Auto) Eos % (Auto) Baso % (Auto) Absolute Neuts (auto) Absolute Lymphs (auto) Absolute Monos (auto) Absolute Eos (auto) Absolute Basos (auto) Absolute Nucleated RBC Nucleated RBC % Sodium Potassium Chloride Carbon Dioxide Anion Gap BUN Creatinine Est GFR ( Amer) Est GFR (Non-Af Amer) BUN/Creatinine Ratio Glucose POC Glucose (mg/dL) 291 H 345 H 248 H Calcium Serum Alcohol 08/20/19 08/20/19 08/20/19 15:12 15:12 16:11 WBC RBC Hgb Hct MCV MCH MCHC RDW Plt Count MPV Neut % (Auto) Lymph % (Auto) Hudson % (Auto) Eos % (Auto) Baso % (Auto) Absolute Neuts (auto) Absolute Lymphs (auto) Absolute Monos (auto) Absolute Eos (auto) Absolute Basos (auto) Absolute Nucleated RBC Nucleated RBC % Sodium 139 D Potassium 4.3 D Chloride 109 Carbon Dioxide 12 L* Anion Gap 18 H BUN 28 H Creatinine 1.40 H Est GFR ( Amer) 61.0 Est GFR (Non-Af Amer) 50.4 BUN/Creatinine Ratio 20.0 Glucose 222 H POC Glucose (mg/dL) 173 H Calcium 8.4 L Serum Alcohol < 10 08/20/19 08/21/19 08/21/19 20:15 00:00 04:30 WBC RBC Hgb Hct MCV MCH MCHC RDW Plt Count MPV Neut % (Auto) Lymph % (Auto) Hudson % (Auto) Eos % (Auto) Baso % (Auto) Absolute Neuts (auto) Absolute Lymphs (auto) Absolute Monos (auto) Absolute Eos (auto) Absolute Basos (auto) Absolute Nucleated RBC Nucleated RBC % Sodium 135 Potassium 4.5 Chloride 106 Carbon Dioxide 14 L* Anion Gap 15 H BUN 22 Creatinine 1.05 Est GFR ( Amer) 85.0 Est GFR (Non-Af Amer) 70.2 BUN/Creatinine Ratio 21.0 H Glucose 256 H POC Glucose (mg/dL) 258 H 278 H Calcium 8.4 L Serum Alcohol 08/21/19 08/21/19 04:30 08:41 WBC 14.9 H RBC 4.20 Hgb 13.7 L Hct 40 L MCV 96 H MCH 33 H MCHC 34 RDW 13 Plt Count 221 MPV 8.4 Neut % (Auto) 78.6 Lymph % (Auto) 12.8 Hudson % (Auto) 8.1 Eos % (Auto) 0.2 Baso % (Auto) 0.3 Absolute Neuts (auto) 11.7 H Absolute Lymphs (auto) 1.9 Absolute Monos (auto) 1.2 H Absolute Eos (auto) 0.0 Absolute Basos (auto) 0.0 Absolute Nucleated RBC 0.0 Nucleated RBC % 0.0 Sodium Potassium Chloride Carbon Dioxide Anion Gap BUN Creatinine Est GFR ( Amer) Est GFR (Non-Af Amer) BUN/Creatinine Ratio Glucose POC Glucose (mg/dL) 233 H Calcium Serum Alcohol Studies: EKG from admission with prolonged intervals and old IWMI. Will repeat. QRS shorter on rhythm strips from December of 2018 Nutrition: Taking PO. Impression: 69 y/o male PMH IDDM/HTN/Chol presents with DKA. No clear precipitant. CXR and urine clear. EKG abnormal with increased intervals and peaking t-waves, will repeat. Plan: DKA - resolving - received Lantus 10 last PM, apparently takes 40 units daily according to patient in the AM, we have dosed that for today. AG at 15 this AM, repeat labs just sent to follow the gap. He is OOB to chair and feels fine tolerating PO. Admission EKG abnormal, may be all metabolic from the acidemia and hyperkalemia of the DKA but will repeat and add troponin screen given high risk for CAD by PMH. Abnormal EKG - as above. Slow to clear AG and ambiguous source of the DKA will not jim him out the door and hold him for Dr. Gonsalez for tomorrow to assure the best DC plan possible with the physician who knows him best at high risk to bounce back. D/W patient who agrees with plan.
[2019-08-21 13:22] LABS: Anion Gap 12 mmol/L (2-11); BUN/Creatinine Ratio 18.7 (8-20); Blood Urea Nitrogen 17 mg/dL (6-24); CO2 Carbon Dioxide 19 mmol/L (22-32); Calcium 8.5 mg/dL (8.6-10.3); Chloride 103 mmol/L (101-111); EGFR African American 100.3 (>60); EGFR Non-African American 82.9 (>60); Glucose 236 mg/dL (70-100); Potassium 4.4 mmol/L (3.5-5.0); Sodium 134 mmol/L (135-145)
[2019-08-21 13:49] LABS: Troponin I 0.12 ng/mL (<0.03)
--- NOTE | 2019-08-21 16:38 | ECHO ---
*[facility]* [place] [address] Fax #: [phone] Transthoracic Echocardiogram Patient: Arben Kearney : 1950 Study Date: 08/21/2019 Age: 69 Gender: M HR: 71 bpm Height: 72 in /182.9 cm BSA: 2.21 m^2 Weight: 218.5 lb /99.3 kg BMI: 29.7 kg/m^2 *Community Service Technician: * Chandrika Humphrey RDCS RN *Referring Physician: * Helder Farley *Reading Physician: * Alejandro Grant MD Indications: Abnormal EKG. History: Risk factors: Hypertension. Diabetes mellitus. Dyslipidemia. Prior ETOH use. Conclusions Summary: - Left ventricle: The cavity size is normal. Septal wall thickness is mildly increased. There is a prominent septal knuckle Systolic function is normal. The estimated ejection fraction is 60-65%. Wall motion is normal; there are no regional wall motion abnormalities. - Right ventricle: The cavity size is normal. Systolic function is normal. - Left atrium: The atrium is normal sized - Pulmonary arteries: Systolic pressure is within the normal range, estimated to be 34 mm Hg. - No significant valvular abnormalities noted. Recommendations: None prior for comparison. Study data: Transthoracic echocardiogram. Procedure: Transthoracic echocardiography was performed. Image quality was fair. Complete 2D, spectral Doppler, and color flow Doppler. Location: ICU Patient status: Inpatient. Patient room number: ICU 12. Rhythm: Normal sinus rhythm. Findings Left ventricle: The cavity size is normal. Septal wall thickness is mildly increased. There is a prominent septal knuckle Systolic function is normal. The estimated ejection fraction is 60-65%. Wall motion is normal; there are no regional wall motion abnormalities. Abnormal diastolic filling pattern Right ventricle: The cavity size is normal. Systolic function is normal. Left atrium: The atrium is normal sized Right atrium: The atrium is mildly dilated. Mitral valve: The posterior mitral valve annulus appears mildly calcified. The leaflets are mildly thickened. There is no evidence of stenosis. There is trace regurgitation. Aortic valve: The valve is trileaflet. The leaflets are mildly thickened. There is no evidence of stenosis. There is no significant regurgitation. Tricuspid valve: The valve is structurally normal. There is no evidence of stenosis. There is trace to mild regurgitation. Pulmonic valve: The valve is structurally normal. There is no evidence of stenosis. There is no significant regurgitation. Aorta: Ascending aorta: The ascending aorta is not dilated. Aortic arch: The aortic arch is appears normal. The aortic root appears normal. Pericardium: There is no significant pericardial effusion. Pulmonary arteries: The main pulmonary artery is normal-sized. Systolic pressure is within the normal range, estimated to be 34 mm Hg. Systemic veins: Inferior vena cava: The vessel is normal in size. There is (>= 50%) respiratory change in the IVC dimension. Measurements Left ventricle Value Ref Aortic valve continued Value Ref DANIELA, LAX 4.6 cm 4.2 - Peak v, S 1.6 m/sec ----- 5.8 VTI, S 36.1 cm ----- ESD, LAX 3.2 cm 2.5 - Mean grad, S 7.0 mm Hg ----- 4.0 Peak grad, S 10.0 mm Hg ----- FS, LAX 29 % 25 - 43 LVOT/AV, VTI ratio 0.73 ----- PW, ED 1.0 cm 0.6 - 1.0 Mitral valve Value Ref IVS/PW, ED 1.1 -------- Peak E 1 m/sec ----- E', lat britta, TDI (L) 7.4 cm/sec >=10.0 Peak A 1.18 m/sec - ---- E/e', lat britta, TDI 13 -------- Decel time 239 ms ---- - E', med britta, TDI (L) 6.9 cm/sec >=7.0 Peak grad, D 4.0 mm Hg - ---- E/e', med britta, TDI 14 -------- Peak E/A ratio 0.8 ---- - E', avg, TDI 7.2 cm/sec -------- E/e', avg, TDI 14 <=14 Pulmonic valve Value R ef Peak v, S 1.16 m/sec ----- LVOT Value Ref Peak grad, S 5.0 mm Hg ----- Peak eric, S 1.15 m/sec -------- VTI, S 26.4 cm -------- Tricuspid valve Value Ref Peak grad, S 5 mm Hg -------- TR peak v 2.8 m/sec <=2.8 Mean grad, S 3 mm Hg -------- Peak RV-RA grad, S 31 mm Hg ----- Max TR eric 2.8 m/sec ----- Ventricular septum Value Ref IVS, ED (H) 1.1 cm 0.6 - Aortic root Value Ref 1.0 Root diam 3.3 cm <4.3 Right ventricle Value Ref Ascending aorta Value Ref DANIELA, LAX 3.3 cm -------- AAo AP diam, S 3.4 cm ----- DANIELA minor ax, A4C 3.4 cm 1.9 - mid 3.5 Aortic arch Value Ref Pressure, S 34 mm Hg -------- Arch diam 2.5 cm ----- Left atrium Value Ref Decending aorta Value Ref ML dim, A4C 3.8 cm -------- Axel peak eric 0.79 m/sec ----- SI dim, A4C 5.3 cm -------- Vol/bsa, ES, 1-p 19 ml/m^2 12 - 37 Pulmonary artery Value Ref A4C Pressure, S 34.0 mm Hg ----- Vol/bsa, ES, A/L 23 ml/m^2 16 - 34 Inferior vena cava Value Ref Right atrium Value Ref Diam 2.0 cm ----- ML dim, ES, A4C 3.5 cm 2.6 - 4.4 SI dim, ES, A4C (H) 5.7 cm 3.4 - 5.3 Estimated RAP 3 mm Hg -------- Aortic valve Value Ref Britta diam, ED 2.2 cm -------- Britta diam/bsa, ED 1.0 cm/m^2 -------- Legend: (L) and (H) bella values outside specified reference range. Prepared and electronically signed by Alejandro Grant MD 08/21/2019 16:37
[2019-08-21 18:40] LABS: Troponin I 0.08 ng/mL (<0.03)
[2019-08-21 19:47] LABS: Anion Gap 14 mmol/L (2-11); BUN/Creatinine Ratio 15.2 (8-20); Blood Urea Nitrogen 14 mg/dL (6-24); CO2 Carbon Dioxide 18 mmol/L (22-32); Calcium 8.6 mg/dL (8.6-10.3); Chloride 105 mmol/L (101-111); EGFR Non-African American 81.8 (>60); Glucose 239 mg/dL (70-100); Sodium 137 mmol/L (135-145)
[2019-08-22] MEDS: Insulin LISPRO* 1 UNITS UNIT SUBCUT SCH ×4 (01:41→11:40)
[2019-08-22] MEDS ORDERED: amLODIPine TAB* 5 MG PO SCH (03:30)
[2019-08-22 09:03] LABS: Calcium 8.8 mg/dL (8.6-10.3); Potassium 3.7 mmol/L (3.5-5.0)
[2019-08-22 09:08] LABS: BUN/Creatinine Ratio 9.1 (8-20); EGFR African American 121.6 (>60); EGFR Non-African American 100.5 (>60)
[2019-08-22] MEDS: Lactated Ringers 1000 ML Bag* 1,000 ML IV SCH (09:14)
[2019-08-22] MEDS: Insulin GLARGINE(*) 1 UNITS UNIT SUBCUT SCH (09:15)
--- NOTE | 2019-08-22 10:47 | PN ---
Subjective - Subjective Reason for Note: Discharge Note History: Discharge Summary He has recovered from his diabetic ketoacidosis. He has no symptoms of acidoses/ketonemia. see ROS Active Problems: Active Problems DKA, type 2 (Acute) E13.10 Troponin I above reference range (Acute) R79.89 Diabetic peripheral neuropathy (Chronic) E11.42 Essential (primary) hypertension (Chronic) I10 Fatty liver (Chronic) K76.0 Hyperlipidemia (Chronic) E78.5 Insulin long-term use (Chronic) Z79.4 Personal history of alcoholism (Chronic) F10.21 Type 2 diabetes mellitus (Chronic) Current Medications: Current Medications Amlodipine Besylate (Norvasc Tab*) 10 mg PO DAILY [facility] Last Admin: 08/22/19 04:07 Dose: 10 mg Lactated Ringer's (Lactated Ringers 1000 Ml Bag*) 1,000 mls @ 100 mls/hr IV PER RATE [facility] Last Admin: 08/22/19 09:14 Dose: 100 mls/hr Insulin Glargine (Lantus(*)) 40 units SUBCUT DAILY [facility] Last Admin: 08/22/19 09:15 Dose: 40 unit Insulin Human Lispro (Humalog*) 0 units SUBCUT Q4H [facility]; Protocol Last Admin: 08/22/19 09:15 Dose: 2 units Lorazepam (Ativan Inj*) 1 mg IV PUSH Q4H PRN PRN Reason: ANXIETY Miscellaneous (Ativan Pyxis Teran) 1 ea N/A .ATIVAN IV TERAN PRN PRN Reason: PYXIS TERAN - Review of Systems Constitutional Symptoms: No: Weakness, Fatigue, Fever, Night Sweats, Other - No pain Pulmonary: Negative: Cough, Sputum, Hemoptysis, Respiratory Distress, Shortness of Breath Cardiology: Negative: Chest Pain, Palpitations, Swelling of Ankles Gastroenterology: Positive: Constipation - no recent bowel movt Negative: Abdominal Pain, Nausea, Vomiting, Anorexia, Indigestion, Heartburn Genital - Urinary: Positive: Polyuria Negative: Dysuria Neurology: Negative: Headache, Change in Vision - no photophobia/neck stiffness Home Medications: Home Medications Medication Instructions Recorded Confirmed Type Cholecalciferol (Vitamin D3) 1,000 unit PO DAILY 12/26/15 08/20/19 History [Vitamin D3] Fish Oil/E/Fatty Acid5/Mvik457 1 cap PO DAILY 12/26/15 08/20/19 History [Super Blanding-3 Softgel] Insulin GLARGINE(*) [Lantus(*)] 50 units SUBCUT Q24H unit 04/19/17 08/20/19 Rx Aspirin EC TAB* [Ecotrin EC Low 81 mg PO DAILY 08/20/19 08/20/19 History Dose 81 MG*] Calcium Carbonate [Calcium] 500 mg PO DAILY 08/20/19 08/20/19 History L.acidoph,Paracasei, B.lactis 1 each PO DAILY 08/20/19 08/20/19 History [Probiotic] Multivitamins/Minerals TAB* [Thera 1 tab PO DAILY 08/20/19 08/20/19 History M Plus TAB*] amLODIPine TAB* [Norvasc 5 mg TAB*] 10 mg PO DAILY 08/20/19 08/20/19 History Insulin LISPRO* [HumaLOG*] 0 units SUBCUT Q4H unit 08/22/19 Rx Allergies: Allergies Allergy/AdvReac Type Severity Reaction Status Date / Time fluoxetine [From Prozac] Allergy Anxiety Verified 08/20/19 07:36 SSRI Allergy Anxiety Uncoded 12/29/18 09:50 Objective - Vital Signs Vital Signs: Vital Signs 08/21/19 08/21/19 08/21/19 11:00 11:29 12:00 Temperature 97.7 F Pulse Rate 72 71 Respiratory 15 15 Rate Blood Pressure 133/69 (mmHg) O2 Sat by Pulse 97 98 Oximetry 08/21/19 08/21/19 08/21/19 13:00 14:00 14:22 Temperature Pulse Rate 79 69 70 Respiratory 19 19 19 Rate Blood Pressure 128/72 (mmHg) O2 Sat by Pulse 100 100 97 Oximetry 08/21/19 08/21/19 08/21/19 15:00 16:00 16:01 Temperature 99.1 F Pulse Rate 69 70 66 Respiratory 12 19 24 Rate Blood Pressure 112/67 166/81 (mmHg) O2 Sat by Pulse 96 97 99 Oximetry 08/21/19 08/21/19 08/21/19 17:00 17:02 18:00 Temperature Pulse Rate 75 70 76 Respiratory 26 22 29 Rate Blood Pressure 153/80 143/85 (mmHg) O2 Sat by Pulse 88 97 92 Oximetry 08/21/19 08/21/19 08/21/19 19:00 19:44 20:00 Temperature 99.0 F Pulse Rate 72 Respiratory 15 21 14 Rate Blood Pressure 144/74 147/73 (mmHg) O2 Sat by Pulse 98 Oximetry 08/21/19 08/21/19 08/21/19 21:00 21:08 21:55 Temperature Pulse Rate Respiratory 19 19 20 Rate Blood Pressure 176/87 148/84 (mmHg) O2 Sat by Pulse Oximetry 08/21/19 08/22/19 08/22/19 22:16 03:08 07:26 Temperature 98.0 F 98.5 F 97.9 F Pulse Rate 67 82 62 Respiratory 16 18 16 Rate Blood Pressure 142/73 189/106 139/66 (mmHg) O2 Sat by Pulse 100 100 99 Oximetry 08/22/19 08:08 Temperature Pulse Rate Respiratory 16 Rate Blood Pressure (mmHg) O2 Sat by Pulse Oximetry - Intake and Output Intake and Output: Intake & Output 08/19/19 08/20/19 08/21/19 08/22/19 11:59 11:59 11:59 11:59 Intake Total 4000 2468.4 4374 Output Total 720 2230 3150 Balance 3280 238.4 1224 Weight 223 lb 11.2 oz 219 lb 9 oz Intake: IV Fluids 4000 1200 2184 LR 1200 2184 Medicated IV 68.4 CC - Insulin 68.4 Oral 1200 2190 Output: Urine 720 2230 3150 Other: Date of Last Bowel 08/19/19 Movement # Voids 1 ADLs: Meal Record Start: 08/20/19 09: 17 Freq: 09,13,18 Status: Inactive Protocol: Created 08/20/19 09:17 System (Rec: 08/20/19 09:17 System ICU-C14) Document 08/20/19 13:00 [id number] (Rec: 08/20/19 13:39 [id number] ICU-C06) Document 08/20/19 18:00 [id number] (Rec: 08/20/19 21:17 [id number] ICU-C06) Document 08/21/19 13:00 [id number] (Rec: 08/21/19 14:30 [id number] ICU-C14) Document 08/21/19 18:00 [id number] (Rec: 08/21/19 18:44 [id number] ICU-C11) ADLs: Meal Record Start: 08/21/19 22: 16 Freq: DAILY@0900,1400,1800 Status: Active Protocol: Created 08/21/19 22:16 [id number] (Rec: 08/21/19 22:16 [id number] TELE-C02) Document 08/22/19 09:00 [id number] (Rec: 08/22/19 09:52 [id number] TELE-C01) Intake and Output Start: 08/20/19 06: 19 Freq: Status: Inactive Protocol: Created 08/20/19 06:19 System (Rec: 08/20/19 06:19 System EDRM-C18) Document 08/20/19 08:00 [id number] (Rec: 08/20/19 08:00 [id number] EDRM-C18) Intake and Output Start: 08/20/19 09: 17 Freq: Q1HR Status: Inactive Protocol: Created 08/20/19 09:17 System (Rec: 08/20/19 09:17 System ICU-C14) Document 08/20/19 11:00 [id number] (Rec: 08/20/19 11:20 [id number] ICU-C06) Document 08/20/19 16:57 [id number] (Rec: 08/20/19 16:57 [id number] ICU-C06) Document 08/20/19 19:00 [id number] (Rec: 08/20/19 21:18 [id number] ICU-C06) Document 08/20/19 20:00 [id number] (Rec: 08/20/19 21:24 [id number] ICU-C06) Document 08/20/19 21:00 [id number] (Rec: 08/20/19 21:24 [id number] ICU-C06) Document 08/20/19 22:00 [id number] (Rec: 08/20/19 22:08 [id number] ICU-C06) Document 08/20/19 22:59 [id number] (Rec: 08/20/19 23:00 [id number] ICU-C06) Document 08/21/19 00:00 [id number] (Rec: 08/21/19 00:13 [id number] ICU-C06) Document 08/21/19 01:00 [id number] (Rec: 08/21/19 01:11 [id number] ICU-C06) Document 08/21/19 02:00 [id number] (Rec: 08/21/19 02:25 [id number] ICU-C06) Document 08/21/19 02:53 [id number] (Rec: 08/21/19 02:53 [id number] ICU-C06) Document 08/21/19 03:46 [id number] (Rec: 08/21/19 03:46 [id number] ICU-C06) Document 08/21/19 04:00 [id number] (Rec: 08/21/19 04:04 [id number] ICU-C06) Document 08/21/19 04:53 [id number] (Rec: 08/21/19 04:54 [id number] ICU-C06) Document 08/21/19 06:00 [id number] (Rec: 08/21/19 06:37 [id number] ICU-C06) Document 08/21/19 06:40 [id number] (Rec: 08/21/19 06:40 [id number] ICU-C06) Document 08/21/19 07:20 [id number] (Rec: 08/21/19 08:22 [id number] ICU-C11) Document 08/21/19 09:00 [id number] (Rec: 08/21/19 09:02 [id number] ICU-C12) Document 08/21/19 10:00 [id number] (Rec: 08/21/19 10:43 [id number] ICU-C12) Document 08/21/19 11:00 [id number] (Rec: 08/21/19 11:07 [id number] ICU-C12) Document 08/21/19 12:00 [id number] (Rec: 08/21/19 13:16 [id number] ICU-C12) Document 08/21/19 13:00 [id number] (Rec: 08/21/19 13:16 [id number] ICU-C12) Document 08/21/19 14:00 [id number] (Rec: 08/21/19 15:08 [id number] ICU-C12) Document 08/21/19 15:00 VIW4039 (Rec: 08/21/19 15:08 [id number] ICU-C12) Document 08/21/19 15:42 [id number] (Rec: 08/21/19 15:42 [id number] ICU-C12) Document 08/21/19 17:34 [id number] (Rec: 08/21/19 17:34 [id number] ICU-M32) Document 08/21/19 17:35 [id number] (Rec: 08/21/19 17:36 [id number] ICU-M32) Document 08/21/19 18:00 [id number] (Rec: 08/21/19 18:07 [id number] ICU-C12) Document 08/21/19 19:00 [id number] (Rec: 08/21/19 19:44 [id number] ICU-C07) Document 08/21/19 19:44 [id number] (Rec: 08/21/19 19:49 [id number] ICU-C07) Document 08/21/19 21:00 [id number] (Rec: 08/21/19 21:05 [id number] ICU-C07) Document 08/21/19 21:55 [id number] (Rec: 08/21/19 21:55 [id number] ICU-C07) Intake and Output Start: 08/21/19 22: 16 Freq: DAILY@0600,1400,2200 Status: Active Protocol: Created 08/21/19 22:16 [id number] (Rec: 08/21/19 22:16 [id number] TELE-C02) Document 08/22/19 06:00 [id number] (Rec: 08/22/19 06:11 [id number] TELE-C09) - Physical Exam General Physical Exam Comment: He is back to baseline - he is alert, oriented , insightful. He is well perfused, hydrated. No acidotic breathing General: No Cyanosis Endocrine: Yes Central Obesity, No Acromegaly, No Vitiligo, No Flushing, No Acanthosis nigricans, No Violaceious striae, No Jeannie Syndrome, No Buccal pigmenatation, No Barroso Crease Pigmentation Lungs and Chest: Yes: Chest Expansion Full, Chest Expansion Symetrica, Percussion Note Resonant, Vessicular Breath Sounds, Crackles. No: Wheezes, Respiratory Distress Heart Rate and Rhythm: Regular Additional Cardiovascular: Yes: Normal Heart Sounds. No: Heart Murmur, Pedal Edema Abdominal Exam: Yes: Soft, Bowel Sounds Present. No: Distention, Hepatomegaly, Splenomegaly, Abdominal Tenderness - Extremities Cranial Nerves II-XII Intact: Yes Limbs: Normal Power, Normal Tone - Neuro Orientation: A/O x3 Psychiatric: Normal Speech: Normal Results - Results Lab Results: Laboratory Results - last 24 hr 08/21/19 08/21/19 08/21/19 04:29 12:38 12:51 Sodium 134 L Potassium 4.4 Chloride 103 Carbon Dioxide 19 L Anion Gap 12 H BUN 17 Creatinine 0.91 Est GFR ( Amer) 100.3 Est GFR (Non-Af Amer) 82.9 BUN/Creatinine Ratio 18.7 Glucose 236 H POC Glucose (mg/dL) 266 H 165 H Calcium 8.5 L Troponin I 0.12 H* 08/21/19 08/21/19 08/22/19 17:08 18:07 01:16 Sodium 137 Potassium 4.0 Chloride 105 Carbon Dioxide 18 L Anion Gap 14 H BUN 14 Creatinine 0.92 Est GFR ( Amer) 99.0 Est GFR (Non-Af Amer) 81.8 BUN/Creatinine Ratio 15.2 Glucose 239 H POC Glucose (mg/dL) 255 H 189 H Calcium 8.6 Troponin I 0.08 H* 08/22/19 08/22/19 08/22/19 04:19 08:05 08:35 Sodium 141 Potassium 3.7 Chloride 104 Carbon Dioxide 31 Anion Gap 6 BUN 7 Creatinine 0.77 Est GFR ( Amer) 121.6 Est GFR (Non-Af Amer) 100.5 BUN/Creatinine Ratio 9.1 Glucose 169 H POC Glucose (mg/dL) 174 H 157 H Calcium 8.8 Troponin I EKG Report: EKG 08/21/19 13:22 Rate 73 W[place] 203 QTc 451 QRS axis -18 sinus rhythm Unchanged from previous EKGs. Qs in inferior leads. Other Results/Reports: Transthoracic Echocardiogram Summary: - Left ventricle: The cavity size is normal. Septal wall thickness is mildly increased. There is a prominent septal knuckle Systolic function is normal. The estimated ejection fraction is 60-65%. Wall motion is normal; there are no regional wall motion abnormalities. - Right ventricle: The cavity size is normal. Systolic function is normal. - Left atrium: The atrium is normal sized - Pulmonary arteries: Systolic pressure is within the normal range, estimated to be 34 mm Hg. - No significant valvular abnormalities noted. Recommendations: None prior for comparison. Study data: Transthoracic echocardiogram. Procedure: This report is only to be considered final once signed by the Provider(s) as displayed in the "<Electronically Signed by >" field (s). Absence of a signature indicates the report is in a draft status and still needs to be finalized. In the event this document was created by someone other than the signing Provider, the individual initiating the document will be listed in the "Entered by:" or "Dictated by:" craig. Assessment - Problem List Assessment: Patient Problems DKA, type 2 (Acute) Troponin I above reference range (Acute) Diabetic peripheral neuropathy (Chronic) Essential (primary) hypertension (Chronic) Fatty liver (Chronic) Hyperlipidemia (Chronic) Insulin long-term use (Chronic) Personal history of alcoholism (Chronic) Type 2 diabetes mellitus (Chronic) Plan: DKA, type 2 (Acute) He has recovered - he acknowledges he wasn't checking his fingersticks, eating carbs+++ and may have missed insulin injections. He had been running in the 200s when last checked and didn't attend scheduled outpatient visit. He will use fresh insulin pens. He will check his FS ac and hs. He will call if he has persistent hyperglycemia and will olive picker new insulin supply. With one month of records, we will apply for [employer] Liliane continuous glucose monitor Troponin I above reference range This is likely secondary to the acidosis. It has come down. I will arrange outpatient stress test for further risk stratification Diabetic peripheral neuropathy (Chronic) Feet examined on ulcers, callouses, infections Essential (primary) hypertension (Chronic) labile. Secondary diagnosis: Fatty liver (Chronic) Hyperlipidemia (Chronic) Insulin long-term use (Chronic) Personal history of alcoholism (Chronic) Type 2 diabetes mellitus (Chronic) I discussed above with patient. He will make a transition of care visit within 1 week. He is medically ready for discharge condition at discharge Good Disposition Home
[2019-08-22 11:47] VITALS: BP 160/77
== END 2019-08-22 12:10 | disposition home or self-care (01) | DRG 639 ==
LOC: ED 06:05 → ICU 09:01 → UNDOADMIN 09:01 → INTOOBSV 09:01 → OBSVTOIN 09:01 → ICU 09:17 → MEDTELE 08-21 22:10 → ICU 08-21 22:10 → UNDODISIN 08-22 12:10
PROVIDERS: ADMIT Internal Medicine; ATTEND Internal Medicine
DX: E11.10 Type 2 diabetes mellitus with ketoacidosis without coma (principal); I10 Essential (primary) hypertension; E78.00 Pure hypercholesterolemia, unspecified; G47.30 Sleep apnea, unspecified; K21.9 Gastro-esophageal reflux disease without esophagitis; E11.36 Type 2 diabetes mellitus with diabetic cataract; R79.89 Other specified abnormal findings of blood chemistry; E11.42 Type 2 diabetes mellitus with diabetic polyneuropathy; K76.0 Fatty (change of) liver, not elsewhere classified; E78.5 Hyperlipidemia, unspecified; E66.8 Other obesity; E87.5 Hyperkalemia; R94.31 Abnormal electrocardiogram [ECG] [EKG]; Z79.82 Long term (current) use of aspirin; Z79.4 Long term (current) use of insulin; Z88.8 Allergy status to other drugs, medicaments and biological substances; Z68.29 Body mass index [BMI] 29.0-29.9, adult
CPT/HCPCS: 36415; 71045; 80048; 80053; 80320; 81003; 82803; 82947; 83605; 83690; 83735; 84484; 85025; 86140; 87641; 93005; 93306; 99285; A9270-GY; G0480; J1815; J2405

== ENCOUNTER 2020-08-14 23:30 | Inpatient (IN) ==
[2020-08-14] MEDS ORDERED: NS 0.9% 1000 ml BAG 2,000 ML IV ONE (23:46)
[2020-08-15 00:09] LABS: ABS Lymphocytes 1.6 10^3/ul (1.0-4.8); ABS Monocytes 0.6 10^3/ul (0-0.8); ABS Neutrophils 10.3 10^3/ul (1.5-7.7); Eosinophil % 0.1 %; Hematocrit 50 % (42-52); Hemoglobin 16.4 g/dL (14.0-18.0); Lymphocyte % 12.7 %; Mean Corpuscular HGB Conc 33 g/dL (31-36); Mean Corpuscular Hemoglobin 33 pg (27-31); Mean Corpuscular Volume 99 fL (80-94); Mean Platelet Volume 8.3 fL (7.4-10.4); Platelet Count 261 10^3/uL (150-450); Red Blood Count 5.03 10^6 /uL (4.18-5.48); Red Cell Distribution Width 13 % (10-15); White Blood Count 12.5 10^3/uL (3.5-10.8)
[2020-08-15] MEDS ORDERED: Ondansetron 4 mg VIAL 2 MG/ML 2 ml VIAL IV ONE (00:12)
[2020-08-15 00:26] LABS: Albumin 4.4 g/dL (3.2-5.2); Albumin/Globulin Ratio 1.4 (1-3); C Reactive Protein 8.02 mg/L (<8.01); Calcium 11.6 mg/dL (8.6-10.3); EGFR African American 65.6 (>60); EGFR Non-African American 54.3 (>60); Globulin 3.2 g/dL (2-4); Magnesium 1.8 mg/dL (1.9-2.7); Phosphorus 7.2 mg/dL (2.5-5.0); Potassium 4.5 mmol/L (3.5-5.0); Total Protein 7.6 g/dL (6.4-8.9)
[2020-08-15] MEDS ORDERED: Insulin Infusion 100unit/100mL 100 UNIT/100 ML BAG IV ONE (01:00)
[2020-08-15] MEDS ORDERED: NS 0.9% 1000 ml BAG 1,000 ML IV SCH ×3 (01:45→14:15)
[2020-08-15 01:56] LABS: Urine Appearance Clear; Urine Bilirubin Negative (Negative); Urine Blood Negative (Negative); Urine Color Straw; Urine Glucose 3+(>=500 mg/dL) (Negative); Urine Ketones 2+ (Negative); Urine Nitrite Negative (Negative); Urine Protein Negative (Negative); Urine Specific Gravity 1.018 (1.010-1.030); Urine Urobilinogen Negative (Negative)
[2020-08-15 04:31] LABS: Potassium 4.2 mmol/L (3.5-5.0)
[2020-08-15 04:36] LABS: BUN/Creatinine Ratio 18.8 (8-20); EGFR African American 74.8 (>60); EGFR Non-African American 61.8 (>60)
[2020-08-15] MEDS ORDERED: Insulin Infusion 100unit/100mL 100 UNIT/100 ML BAG IV SCH ×2 (05:04→15:00)
[2020-08-15] MEDS ORDERED: D5NS 0.9% 1000 ml BAG 1,000 ML IV SCH ×2 (06:00→16:00)
[2020-08-15] MEDS: Heparin 5000 UNITS/ML 1 mL VIAL SUBCUT SCH ×3 (06:01→22:35)
[2020-08-15 08:46] LABS: BUN/Creatinine Ratio 18.8 (8-20); Calcium 9.3 mg/dL (8.6-10.3); EGFR African American 88.6 (>60); EGFR Non-African American 73.2 (>60); Potassium 4.1 mmol/L (3.5-5.0)
[2020-08-15] MEDS: Aspirin EC 81 mg TAB.EC (enteric coated) PO SCH (09:11)
[2020-08-15] MEDS: Multivitamins/Minerals TAB PO SCH (09:11)
[2020-08-15] MEDS ORDERED: Dextrose 50% Syringe 50 ml 25 GM/50 ML SYRINGE IV PUSH PRN ×3 (09:13→19:11)
[2020-08-15] MEDS ORDERED: Insulin GLARGINE 100 un/ml 10 ml VIAL SUBCUT SCH (10:00)
[2020-08-15] MEDS: Ondansetron 4 mg VIAL 2 MG/ML 2 ml VIAL IV PRN ×2 (11:03→20:13)
[2020-08-15 14:01] LABS: Calcium 9.3 mg/dL (8.6-10.3); EGFR African American 84.7 (>60); Potassium 4.8 mmol/L (3.5-5.0)
[2020-08-15] MEDS ORDERED: KCL 20 MEQ/100 ML IVPREMIX 20 MEQ/100 ML BAG IV ONE (14:15)
[2020-08-15 18:55] LABS: BUN/Creatinine Ratio 17.5 (8-20); Calcium 9.2 mg/dL (8.6-10.3); EGFR African American 86.6 (>60); EGFR Non-African American 71.6 (>60); Potassium 4.1 mmol/L (3.5-5.0)
[2020-08-15 23:00] LABS: BUN/Creatinine Ratio 16.2 (8-20); Calcium 8.7 mg/dL (8.6-10.3); EGFR African American 90.7 (>60)
[2020-08-16 04:19] LABS: ABS Neutrophils 8.5 10^3/ul (1.5-7.7); Eosinophil % 0.3 %; Hematocrit 40 % (42-52); Hemoglobin 14.1 g/dL (14.0-18.0); Lymphocyte % 17.3 %; Mean Corpuscular HGB Conc 35 g/dL (31-36); Mean Corpuscular Hemoglobin 34 pg (27-31); Mean Corpuscular Volume 96 fL (80-94); Mean Platelet Volume 7.6 fL (7.4-10.4); Platelet Count 202 10^3/uL (150-450); Red Cell Distribution Width 12 % (10-15); White Blood Count 11.6 10^3/uL (3.5-10.8)
[2020-08-16] MEDS: Heparin 5000 UNITS/ML 1 mL VIAL SUBCUT SCH ×3 (04:21→21:40)
[2020-08-16 04:52] LABS: BUN/Creatinine Ratio 13.2 (8-20); Calcium 8.7 mg/dL (8.6-10.3); EGFR Non-African American 82.6 (>60); Potassium 3.9 mmol/L (3.5-5.0)
[2020-08-16] MEDS: Aspirin EC 81 mg TAB.EC (enteric coated) PO SCH (08:52)
[2020-08-16] MEDS: Multivitamins/Minerals TAB PO SCH (08:53)
[2020-08-16] MEDS ORDERED: Pneumococcal Vac 23-Polyvalent IM ONE (09:00)
[2020-08-16] MEDS ORDERED: Insulin GLARGINE 100 un/ml 10 ml VIAL SUBCUT SCH (10:00)
[2020-08-16] MEDS ORDERED: Dextran 70/Hypromellose Tears Eye Drops 15 ml BTL (for Artificials Tears) BOTH EYES PRN (10:46)
[2020-08-17] MEDS: Heparin 5000 UNITS/ML 1 mL VIAL SUBCUT SCH ×3 (06:01→21:10)
[2020-08-17] MEDS ORDERED: Insulin GLARGINE 100 un/ml 10 ml VIAL SUBCUT SCH (09:00)
[2020-08-17] MEDS: Multivitamins/Minerals TAB PO SCH (09:11)
[2020-08-17] MEDS: Aspirin EC 81 mg TAB.EC (enteric coated) PO SCH (09:11)
[2020-08-17] MEDS ORDERED: Insulin GLARGINE 100 un/ml 10 ml VIAL SUBCUT ONE (10:24)
[2020-08-17] MEDS ORDERED: Senna TAB 8.6 mg TAB PO PRN (11:14)
[2020-08-17] MEDS ORDERED: Magnesium Hydroxide LIQ 30 ML UDC PO PRN (11:14)
[2020-08-18] MEDS: Heparin 5000 UNITS/ML 1 mL VIAL SUBCUT SCH ×2 (05:51→14:31)
[2020-08-18] MEDS ORDERED: Insulin GLARGINE 100 un/ml 10 ml VIAL SUBCUT SCH (09:00)
[2020-08-18] MEDS: Aspirin EC 81 mg TAB.EC (enteric coated) PO SCH (09:32)
[2020-08-18] MEDS: Multivitamins/Minerals TAB PO SCH (09:35)
[2020-08-18 10:46] VITALS: BP 152/79
[2020-08-23 12:19] LABS: Anti GAD 65 Antibody 0.16 nmol/L (<= 0.02)
== END 2020-08-18 15:15 | disposition home or self-care (01) | DRG 638 ==
LOC: ED 23:30 → ICU 08-15 01:41 → MED 08-16 09:01
PROVIDERS: ADMIT Hospitalist; ATTEND Internal Medicine

== ENCOUNTER 2022-12-17 09:28 | Inpatient (IN) ==
[2022-12-17] MEDS ORDERED: NS 0.9% 1000 ml BAG 1,000 ML IV ONE (09:51)
[2022-12-17] MEDS ORDERED: Ondansetron 4 mg VIAL 2 MG/ML 2 ml VIAL ONE (09:57)
[2022-12-17] MEDS ORDERED: Ondansetron 4 mg VIAL 2 MG/ML 2 ml VIAL IV ONE (09:58)
[2022-12-17] MEDS ORDERED: NS 0.9% 1000 ml BAG 1,000 ML IV SCH (10:00)
[2022-12-17 10:24] LABS: Venous Bicarbonate HCO3 12.8 mmol/L (24-28)
[2022-12-17 10:37] LABS: ABS Basophils 0.1 10^3/ul (0-0.2); ABS Lymphocytes 2.1 10^3/ul (1.0-4.8); ABS Monocytes 0.7 10^3/ul (0-0.8); ABS Neutrophils 16.3 10^3/ul (1.5-7.7); Eosinophil % 0.1 %; Hematocrit 44 % (42-52); Hemoglobin 14.3 g/dL (14.0-18.0); Mean Corpuscular HGB Conc 33 g/dL (31-36); Mean Corpuscular Hemoglobin 31 pg (27-31); Mean Corpuscular Volume 97 fL (80-94); Mean Platelet Volume 9.1 fL (7.4-10.4); Platelet Count 374 10^3/uL (150-450); Red Blood Count 4.56 10^6 /uL (4.18-5.48); Red Cell Distribution Width 13 % (10-15); White Blood Count 19.2 10^3/uL (3.5-10.8)
[2022-12-17 10:53] LABS: High Sens Troponin Baseline 7 pg/mL (<20)
[2022-12-17] MEDS ORDERED: Piperacillin/Tazobac ADVAN 3.375 GM in NS 0.9% 100 ml BAG 100 ML IV ONE (11:08)
[2022-12-17 11:10] LABS: ALT 24 U/L (7-52); AST 22 U/L (13-39); Albumin 3.4 g/dL (3.2-5.2); Albumin/Globulin Ratio 1.2 (1-3); Alkaline Phosphatase 53 U/L (35-149); Blood Urea Nitrogen 17 mg/dL (6-24); C Reactive Protein 6.65 mg/L (<8.01); Chloride 86 mmol/L (101-111); Creatinine, Serum 1.25 mg/dL (0.67-1.17); Globulin 2.9 g/dL (2-4); Magnesium 1.9 mg/dL (1.9-2.7); Potassium 4.6 mmol/L (3.5-5.0); Sodium 131 mmol/L (135-145); Total Protein 6.3 g/dL (6.4-8.9); eGFR CKD-EPI 61.6 (>60)
[2022-12-17 11:18] LABS: Anion Gap 32 mmol/L (2-11); CO2 Carbon Dioxide 13 mmol/L (22-32); Glucose 570 mg/dL (70-100)
[2022-12-17] MEDS: NS 0.9% 1000 ml BAG 1,000 ML IV SCH ×2 (11:47→12:41)
[2022-12-17 11:49] LABS: High Sensitivity Troponin 1 Hr 6 pg/mL (<20)
[2022-12-17] MEDS ORDERED: Insulin Infusion 100unit/100mL 100 UNIT/100 ML BAG IV ONE (11:52)
[2022-12-17] MEDS ORDERED: Dextrose 50% Syringe 50 ml 25 GM/50 ML SYRINGE IV PUSH PRN ×2 (11:52→12:29)
[2022-12-17] MEDS ORDERED: NORMOSOL-R pH 7.4 1000 mL BAG 1,000 ML IV ONE (12:29)
[2022-12-17] MEDS ORDERED: KCL 20 MEQ/100 ML IVPREMIX 20 MEQ/100 ML BAG IV ONE (12:33)
[2022-12-17] MEDS ORDERED: Enoxaparin 30 MG/0.3 ML SYR SUBCUT SCH (13:00)
[2022-12-17] MEDS ORDERED: NS 0.9% w/ 20 Meq KCL 1000 ml 1,000 ML IV SCH (13:00)
[2022-12-17] MEDS ORDERED: Insulin Infusion 100unit/100mL 100 UNIT/100 ML BAG IV SCH (13:00)
[2022-12-17] MEDS: Ondansetron 4 mg VIAL 2 MG/ML 2 ml VIAL IV PRN ×2 (13:18→19:27)
[2022-12-17 13:33] LABS: Urine Appearance Clear; Urine Bacteria Absent (Absent); Urine Bilirubin Negative (Negative); Urine Blood Negative (Negative); Urine Color Yellow; Urine Glucose 3+(>=500 mg/dL) (Negative); Urine Ketones 2+ (Negative); Urine Nitrite Negative (Negative); Urine Protein Negative (Negative); Urine Red Blood Cell 1+(3-5/hpf) (Absent); Urine Squamous Epithelial Cell Present (Absent); Urine Urobilinogen Negative (Negative); Urine White Blood Cell Trace(0-5/hpf) (Absent)
[2022-12-17] MEDS: Metoclopramide 5 MG/ML VIAL (10 mg) IV PRN ×2 (13:58→20:09)
[2022-12-17] MEDS ORDERED: Heparin 5000 UNITS/ML 1 mL VIAL SUBCUT SCH (14:00)
[2022-12-17] MEDS ORDERED: NORMOSOL-R pH 7.4 1000 mL BAG 1,000 ML IV SCH ×4 (14:00→16:11)
[2022-12-17] MEDS ORDERED: LORazepam 2 mg VIAL 1 ml IV PUSH ONE (14:15)
[2022-12-17] MEDS ORDERED: Lorazepam PYXIS KEY PRN (14:15)
[2022-12-17] MEDS ORDERED: D10W 1000 ml BAG 1,000 ML IV SCH ×2 (15:00)
[2022-12-17] MEDS ORDERED: Thiamine 100 MG/ML 2 ml VIAL (200 mg) IM ONE (16:05)
[2022-12-17] MEDS: D10W 1000 ml BAG 1,000 ML IV SCH (16:10)
[2022-12-17 16:41] LABS: C Reactive Protein 8.16 mg/L (<8.01); Calcium 8.8 mg/dL (8.6-10.3); Creatinine, Serum 0.91 mg/dL (0.67-1.17); Potassium 3.7 mmol/L (3.5-5.0); eGFR CKD-EPI 90.1 (>60)
[2022-12-17 16:52] LABS: T4, Total 10.41 mcg/dL (6.09-12.23)
[2022-12-17 16:55] LABS: TSH Ultra Thyroid Stim Horm 1.19 mcIU/mL (0.34-5.60)
[2022-12-17 16:56] LABS: Free T3 3.3 pg/mL (2.5-3.9)
[2022-12-17] MEDS ORDERED: NS 0.9% w/ 40 Meq KCL 1000 ML 1,000 ML IV SCH (17:00)
[2022-12-17] MEDS: Multivitamins/Minerals TAB PO SCH (17:40)
[2022-12-17] MEDS: NS 0.9% w/ 40 Meq KCL 1000 ML 1,000 ML IV SCH (17:53)
[2022-12-17 18:29] LABS: Alcohol, S < 13 mg/dL (<13)
[2022-12-17 19:06] LABS: Venous Bicarbonate HCO3 26.2 mmol/L (24-28)
[2022-12-17 20:49] LABS: Calcium 8.3 mg/dL (8.6-10.3); Creatinine, Serum 0.82 mg/dL (0.67-1.17); Potassium 4.1 mmol/L (3.5-5.0); eGFR CKD-EPI 93.9 (>60)
[2022-12-18] MEDS ORDERED: Acetaminophen IV 1 GM/100ML 1,000 MG/100 ML BAG IV PRN (00:15)
[2022-12-18 00:51] LABS: Creatinine, Serum 0.77 mg/dL (0.67-1.17); Magnesium 1.5 mg/dL (1.9-2.7); eGFR CKD-EPI 95.7 (>60)
[2022-12-18] MEDS ORDERED: Magnesium Sulfate IV 3 GM in NS 0.9% 100 ml BAG 100 ML IVPB ONE (01:02)
[2022-12-18] MEDS: D10W 1000 ml BAG 1,000 ML IV SCH (01:56)
[2022-12-18 04:29] LABS: ABS Basophils 0.1 10^3/ul (0-0.2); ABS Eosinophils 0.1 10^3/ul (0-0.6); ABS Lymphocytes 2.4 10^3/ul (1.0-4.8); ABS Neutrophils 13.4 10^3/ul (1.5-7.7); Eosinophil % 0.3 %; Hematocrit 37 % (42-52); Hemoglobin 12.4 g/dL (14.0-18.0); Mean Corpuscular HGB Conc 33 g/dL (31-36); Mean Corpuscular Hemoglobin 31 pg (27-31); Mean Corpuscular Volume 94 fL (80-94); Mean Platelet Volume 7.9 fL (7.4-10.4); Platelet Count 265 10^3/uL (150-450); Red Blood Count 3.99 10^6 /uL (4.18-5.48); Red Cell Distribution Width 12 % (10-15); White Blood Count 16.9 10^3/uL (3.5-10.8)
[2022-12-18 04:51] LABS: ALT 16 U/L (7-52); Albumin/Globulin Ratio 1.5 (1-3); Alkaline Phosphatase 41 U/L (35-149); Blood Urea Nitrogen 6 mg/dL (6-24); CO2 Carbon Dioxide 30 mmol/L (22-32); Calcium 7.7 mg/dL (8.6-10.3); Chloride 101 mmol/L (101-111); Glucose 216 mg/dL (70-100); Sodium 136 mmol/L (135-145); eGFR CKD-EPI 94.6 (>60)
[2022-12-18 04:58] LABS: Anion Gap 5 mmol/L (2-11)
[2022-12-18] MEDS: NS 0.9% w/ 40 Meq KCL 1000 ML 1,000 ML IV SCH (06:07)
[2022-12-18] MEDS: Ondansetron 4 mg VIAL 2 MG/ML 2 ml VIAL IV PRN (06:08)
[2022-12-18 06:25] LABS: Potassium Redraw 3.6 mmol/L (3.5-5.0)
[2022-12-18] MEDS ORDERED: NS 0.9% w/ 40 Meq KCL 1000 ML 1,000 ML IV SCH (07:49)
[2022-12-18] MEDS ORDERED: Insulin GLARGINE 100 un/ml 10 ml VIAL SUBCUT ONE (08:34)
[2022-12-18] MEDS ORDERED: Dextrose 50% Syringe 50 ml 25 GM/50 ML SYRINGE IV PUSH PRN ×2 (08:37→09:49)
[2022-12-18] MEDS: Multivitamins/Minerals TAB PO SCH (09:12)
[2022-12-18] MEDS: Latanoprost 0.005% 2.5 ml BTL BOTH EYES SCH (09:14)
[2022-12-18] MEDS: Metoclopramide 5 MG/ML VIAL (10 mg) IV PRN (10:40)
[2022-12-18] MEDS: Enoxaparin 40 MG/0.4 ML SYR SUBCUT SCH (12:28)
[2022-12-18] MEDS ORDERED: Insulin LISPRO FOR INSULIN PUMP SUBCUT SCH (19:00)
[2022-12-19 04:43] LABS: ABS Basophils 0.1 10^3/ul (0-0.2); ABS Eosinophils 0.1 10^3/ul (0-0.6); ABS Lymphocytes 1.9 10^3/ul (1.0-4.8); ABS Monocytes 0.6 10^3/ul (0-0.8); ABS Neutrophils 6.8 10^3/ul (1.5-7.7); Eosinophil % 1.2 %; Hematocrit 37 % (42-52); Hemoglobin 12.6 g/dL (14.0-18.0); Lymphocyte % 20.2 %; Mean Corpuscular HGB Conc 34 g/dL (31-36); Mean Corpuscular Hemoglobin 32 pg (27-31); Mean Corpuscular Volume 94 fL (80-94); Mean Platelet Volume 8.1 fL (7.4-10.4); Nucleated Red Blood Cells % 0.2; Platelet Count 225 10^3/uL (150-450); Red Blood Count 3.96 10^6 /uL (4.18-5.48); Red Cell Distribution Width 13 % (10-15); White Blood Count 9.6 10^3/uL (3.5-10.8)
[2022-12-19 05:18] LABS: Blood Urea Nitrogen 5 mg/dL (6-24); CO2 Carbon Dioxide 32 mmol/L (22-32); Calcium 7.7 mg/dL (8.6-10.3); Chloride 99 mmol/L (101-111); Creatinine, Serum 0.72 mg/dL (0.67-1.17); Glucose 128 mg/dL (70-100); Sodium 137 mmol/L (135-145); eGFR CKD-EPI 97.7 (>60)
[2022-12-19 05:29] LABS: Anion Gap 6 mmol/L (2-11)
[2022-12-19] MEDS: Multivitamins/Minerals TAB PO SCH (09:11)
[2022-12-19] MEDS: Latanoprost 0.005% 2.5 ml BTL BOTH EYES SCH (09:12)
[2022-12-19] MEDS: Enoxaparin 40 MG/0.4 ML SYR SUBCUT SCH (12:30)
[2022-12-19 13:35] VITALS: BP 132/69
== END 2022-12-19 14:00 | disposition home or self-care (01) | DRG 638 ==
LOC: ED 09:28 → EDHOLD 12:14 → ICU 12:45
PROVIDERS: ADMIT Internal Medicine Critical Care Medicine; ATTEND Internal Medicine Critical Care Medicine